=== PATIENT | female | born 1940 | race Two or more races ===

== ENCOUNTER 2018-11-28 16:03 | Inpatient (IN) | payer OTHER ==
[~2018-11-28] VITALS: Ht 157.5 cm; Wt 50.8 kg
[~2018-11-28 16:03] MED LIST: CAR125T PO; CHOL20003; DIPH25CA6; GABA300C10 PO; OMEP20CA74 PO; ONDA4TAB5 PO; POTA10TA51 PO; SERT-160; SIMV-13
[2018-11-28 17:30] LABS: Basophils # (auto) 0 uL; Eosinophils # (auto) 0 uL; Hemoglobin 12.6 g/dL (12.2-16.2); Monocytes # (auto) 0.3 uL; Red Cell Distribution Width 16.7 % (11.8-14.3); White Blood Cell 5.5 10^3/uL (4.4-10.8)
[2018-11-28 17:32] LABS: Basophils % (auto) 0.6 % (0.0-2.0); Eosinophils % (auto) 0.2 % (0.0-7.0); Hematocrit 38.7 % (36.0-46.0); Lymphocytes # (auto) 0.8 uL; Lymphocytes % (auto) 15.3 % (10.0-50.0); Mean Corpuscular Hemoglobin 26.1 pg (28.0-32.0); Mean Corpuscular Hgb Conc. 32.5 g/dL (32.0-36.0); Mean Corpuscular Volume 80.3 fL (80.0-100.0); Neutrophils # (auto) 4.2 uL; Neutrophils % (auto) 77.9 % (37.0-80.0); Platelet Count (auto) 144 10^3/uL (140-450); Red Blood Cells 4.82 10^6/uL (4.0-5.20)
[2018-11-28 17:43] LABS: Partial Thromboplastin Time 22.6 sec (23.78-33.04); Prothrombin Time 10.7 sec (9.27-12.13)
[2018-11-28 17:49] LABS: Alanine Aminotransferase 13 U/L (13-56); Albumin 3.6 g/dL (3.4-5.0); Anion Gap 11 (5-15); Aspartate Aminotransferase 22 U/L (15-37); Blood Urea Nitrogen 8 mg/dL (7-18); Calcium 8.5 mg/dL (8.5-10.1); Carbon Dioxide 26 mmol/L (21-32); Chloride 102 mmol/L (98-107); Glucose 112 mg/dL (74-106); Magnesium 1.8 mg/dL (1.6-2.6); Potassium 3.1 mmol/L (3.5-5.1); Sodium 139 mmol/L (136-145)
[2018-11-28 17:55] LABS: Alkaline Phosphatase 130 U/L (45-117); BUN/Creatinine Ratio 6.7; Bilirubin, Total 0.5 mg/dL (0.2-1.0); GFR African American 57 mL/min; GFR Non-African American 47 mL/min; Total Protein 7.8 g/dL (6.4-8.2)
[2018-11-28] MEDS ORDERED: ONDANSETRON HCL 4 MG/2 ML VIAL IV ONE (18:45)
[2018-11-28] MEDS ORDERED: SODIUM CHLORIDE 0.9% 1,000 ML IV ONE (18:45)
[2018-11-28] MEDS ORDERED: PANTOPRAZOLE 40 MG/10 ML VIAL IV ONE (20:30)
[2018-11-28] MEDS ORDERED: PROMETHAZINE HCL 25 MG/ML 1ML IV ONE (20:30)
[2018-11-28] MEDS: POTASSIUM CHL 20MEQ/100ML 100 ML IV SCH ×2 (20:50→23:53)
[2018-11-28] MEDS ORDERED: HYDROcodone-ACET 5/325MG TAB PO PRN (21:30)
[2018-11-28] MEDS ORDERED: ACETAMINOPHEN 500 MG TAB PO PRN (21:30)
[2018-11-28] MEDS ORDERED: ONDANSETRON HCL 4 MG/2 ML VIAL IV PRN (21:30)
[2018-11-28] MEDS ORDERED: MORPHINE SULFATE 10 MG/ML INJ 1ML SDV IV PRN (21:30)
[2018-11-28 22:00] VITALS: BP 138/93
[2018-11-28] MEDS ORDERED: SERTRALINE HCL 50 MG TAB PO SCH (22:00)
[2018-11-28] MEDS: CARVEDILOL 12.5 MG TAB PO SCH (22:00)
[2018-11-28 22:55] VITALS: BP 138/93
--- NOTE | 2018-11-28 22:55 | NUR ---
Telemetry admit from ER ARLENE LOPEZ H admitted to Telemetry unit. Patient oriented to Johana Malone RN primary RN, unit, room, bed, and unit policies regarding patient care and visiting hours. Patient now on continuous telemetry monitoring, tele box # 36 and telemetry reading on arrival to unit is Sinus rhythm. Patient is on room air, weighed by bedscale and encouraged to call if they need something. Bed is in lowest locked position with bed rails up x2 and call light is within reach of the patient. All questions and concerns addressed, patient verbalized understanding.
--- NOTE | 2018-11-29 02:01 | NUR ---
Unable to obtain Reconcile Medications: Patient unable to verify what medications patient takes at home. Patient did not have a list of medications on them and did not bring medications to the hospital. Asked patient if a family member could bring the list of medications to the hospital for hospital records. Patient verbalized understanding and will attempt to obtain medication list. Will make day nurse aware.
[2018-11-29 04:55] VITALS: BP 135/67
--- NOTE | 2018-11-29 06:47 | NUR ---
Closing note: Patient is resting in bed with eyes closed. No S/S of distress noted, breaths are even and unlabored. Bed is in lowest locked position with bed rails up x2 and call light is within reach of the patient. Will endorse care to day shift nurse.
[2018-11-29 06:54] LABS: Basophils # (auto) 0 uL; Eosinophils # (auto) 0.1 uL; Hematocrit 32.9 % (36.0-46.0); Hemoglobin 10.8 g/dL (12.2-16.2); Mean Corpuscular Hemoglobin 26.5 pg (28.0-32.0); Monocytes # (auto) 0.3 uL; Nucleated Red Blood Cells % 0.1 %
[2018-11-29 06:55] LABS: Basophils % (auto) 1.1 % (0.0-2.0); Eosinophils % (auto) 1.7 % (0.0-7.0); Lymphocytes # (auto) 0.8 uL; Lymphocytes % (auto) 21.4 % (10.0-50.0); Mean Corpuscular Hgb Conc. 32.9 g/dL (32.0-36.0); Mean Corpuscular Volume 80.5 fL (80.0-100.0); Monocytes % (auto) 8.1 % (0.0-12.0); Neutrophils # (auto) 2.7 uL; Neutrophils % (auto) 67.7 % (37.0-80.0); Platelet Count (auto) 105 10^3/uL (140-450); Red Blood Cells 4.09 10^6/uL (4.0-5.20)
[2018-11-29 07:07] LABS: BUN/Creatinine Ratio 5.6; Calcium 8.1 mg/dL (8.5-10.1); Potassium 3.7 mmol/L (3.5-5.1)
[2018-11-29] MEDS ORDERED: PANTOPRAZOLE 40 MG TAB PO SCH (07:30)
[2018-11-29] MEDS: CARVEDILOL 12.5 MG TAB PO SCH (08:00)
[2018-11-29 08:23] VITALS: BP 152/71
--- NOTE | 2018-11-29 08:30 | NUR ---
Opening Shift Note Assumed care of patient, awake and alert, oriented x 4 and verbally responsive. Respiratory even and unlabored. No S/S of distress/SOB or pain. Skin is warm and dry to touch. Instructed on POC and to call for assist PRN, will continue to monitor for changes Q1hr and PRN.
[2018-11-29 09:27] VITALS: BP 152/71
[2018-11-29] MEDS ORDERED: CLOPIDOGREL BISULFATE 75 MG TAB PO SCH (10:00)
[2018-11-29 12:36] VITALS: BP 122/66
[2018-11-29 14:06] VITALS: BP 152/71
--- NOTE | 2018-11-29 15:04 | NUR ---
Discharge instructions given as ordered. Encourage to follow up with PMD(Follow up with Tyron Allen : #[id number], [id number], [place] [address]. Follow up with Systems Support Engineer [place] [address] [place] [id number], [place] [address] Instructed to make own appointments) as instructed. All questions and concerns addressed. Patient verbalized understanding. Medication reconciliation form completed and copy given to patient. IV removed with catheter intact, pressure dressing applied. Telemetry unit returned to [facility]. Patient taken to vehicle via wheelchair with all personal belongings, accompanied by staff and family member. No distress noted at time of departure.
== END 2018-11-29 15:10 | disposition home or self-care (01) | DRG 641 ==
LOC: EDBD 16:03 → ER 16:05 → TELE 21:24 → TELE-WESTW 22:55
PROVIDERS: ADMIT Nurse Practitioner Family; ATTEND Nurse Practitioner Family
DX: E87.6 Hypokalemia (principal); I49.1 Atrial premature depolarization; D63.8 Anemia in other chronic diseases classified elsewhere; E11.22 Type 2 diabetes mellitus with diabetic chronic kidney disease; E78.5 Hyperlipidemia, unspecified; I12.9 Hypertensive chronic kidney disease with stage 1 through stage 4 chronic kidney disease, or unspecified chronic kidney disease; K21.9 Gastro-esophageal reflux disease without esophagitis; N18.3 Chronic kidney disease, stage 3 (moderate); Z96.652 Presence of left artificial knee joint; F32.9 Major depressive disorder, single episode, unspecified; R00.2 Palpitations; F41.9 Anxiety disorder, unspecified; Z90.49 Acquired absence of other specified parts of digestive tract; Z82.0 Family history of epilepsy and other diseases of the nervous system; Z82.3 Family history of stroke; Z82.49 Family history of ischemic heart disease and other diseases of the circulatory system; Z87.11 Personal history of peptic ulcer disease; Z83.3 Family history of diabetes mellitus; Z90.710 Acquired absence of both cervix and uterus
CPT/HCPCS: 36415; 71046; 80048; 80053; 83735; 83880; 84484; 85025; 85610; 85730; 93005; 94761; 96361; 96374; 96375; C9113; G0378; J2405; J3480

== ENCOUNTER 2019-02-28 15:38 | Inpatient (IN) | payer OTHER ==
[~2019-02-28] VITALS: Ht 152.4 cm; Wt 57.2 kg
[2019-02-28] MEDS ORDERED: ACCU-CHEK COMFORT CURVE STRIP VI ONE ×2 (16:00→16:15)
[2019-02-28] MEDS ORDERED: DEXTROSE (50%) 50ML SYRG IV ONE ×2 (16:00→16:15)
[2019-02-28 17:26] LABS: Basophils # (auto) 0 uL; Eosinophils # (auto) 0.1 uL; Monocytes # (auto) 0.5 uL; Neutrophils # (auto) 2.9 uL; Platelet Count (auto) 97 10^3/uL (140-450); White Blood Cell 4.4 10^3/uL (4.4-10.8)
[2019-02-28 17:30] LABS: Basophils % (auto) 0.4 % (0.0-2.0); Eosinophils % (auto) 2.1 % (0.0-7.0); Hematocrit 32.5 % (36.0-46.0); Hemoglobin 10.5 g/dL (12.2-16.2); Lymphocytes % (auto) 21.8 % (10.0-50.0); Mean Corpuscular Hgb Conc. 32.3 g/dL (32.0-36.0); Mean Corpuscular Volume 83.3 fL (80.0-100.0); Monocytes % (auto) 10.4 % (0.0-12.0); Neutrophils % (auto) 65.3 % (37.0-80.0)
[2019-02-28 17:43] LABS: Albumin 3.5 g/dL (3.4-5.0); Anion Gap 8 (5-15); Blood Urea Nitrogen 10 mg/dL (7-18); Calcium 8.5 mg/dL (8.5-10.1); Carbon Dioxide 22 mmol/L (21-32); Chloride 110 mmol/L (98-107); Glucose 81 mg/dL (74-106); Magnesium 2.4 mg/dL (1.6-2.6); Potassium 4.1 mmol/L (3.5-5.1); Sodium 140 mmol/L (136-145)
[2019-02-28 17:51] LABS: Alanine Aminotransferase 11 U/L (13-56); Alkaline Phosphatase 130 U/L (45-117); Aspartate Aminotransferase 15 U/L (15-37); BUN/Creatinine Ratio 7.7; Bilirubin, Total 0.2 mg/dL (0.2-1.0); GFR African American 51 mL/min; GFR Non-African American 42 mL/min; Total Protein 7.1 g/dL (6.4-8.2)
[2019-02-28 20:13] LABS: Urine Bacteria NONE SEEN /hpf (None Seen); Urine Blood Negative /uL (Negative); Urine Hyaline Cast FEW /lpf (0 - 2); Urine Specific Gravity 1.014 (1.001-1.035); Urine WBC 29 /hpf (0 - 5)
[2019-02-28] MEDS ORDERED: D5W/SOD CHL 0.45% 1,000 ML IV ONE (20:45)
[2019-02-28] MEDS ORDERED: ONDANSETRON HCL 4 MG/2 ML VIAL IV PRN (21:15)
[2019-02-28] MEDS ORDERED: TEMAZEPAM 15 MG CAP PO PRN (21:15)
[2019-02-28] MEDS ORDERED: ACETAMINOPHEN 325 MG TAB PO PRN (21:15)
[2019-02-28] MEDS ORDERED: DEXTROSE (50%) 50ML SYRG IV PRN (21:15)
[2019-02-28] MEDS ORDERED: cefTRIAXone 1GM/50ML D5W 50 ML IV ONE (21:15)
[2019-02-28] MEDS: D5W/SOD CHLO 0.9% 1,000 ML IV SCH ×2 (21:15→23:55)
[2019-02-28] MEDS ORDERED: ATORVASTATIN 20 MG TAB PO SCH (22:00)
[2019-02-28] MEDS: CARVEDILOL 12.5 MG TAB PO SCH (22:12)
[2019-02-28 22:30] VITALS: BP 156/86
[2019-02-28 22:57] VITALS: BP 156/86
[2019-02-28] MEDS: ACCU-CHEK COMFORT CURVE STRIP VI SCH (23:49)
[2019-02-28] MEDS: InsuLIN REG 1unit/0.01ml Soln (100units/ml) SC SCH (23:50)
[2019-03-01] MEDS: InsuLIN REG 1unit/0.01ml Soln (100units/ml) SC SCH ×3 (04:00→11:43)
[2019-03-01] MEDS: ACCU-CHEK COMFORT CURVE STRIP VI SCH ×3 (04:05→11:42)
[2019-03-01 05:10] LABS: Basophils # (auto) 0 uL; Basophils % (auto) 0.5 % (0.0-2.0); Eosinophils # (auto) 0.1 uL; Eosinophils % (auto) 2.1 % (0.0-7.0); Hematocrit 29.1 % (36.0-46.0); Hemoglobin 9.6 g/dL (12.2-16.2); Lymphocytes # (auto) 1.1 uL; Mean Corpuscular Hemoglobin 27.3 pg (28.0-32.0); Mean Corpuscular Hgb Conc. 32.9 g/dL (32.0-36.0); Mean Corpuscular Volume 82.9 fL (80.0-100.0); Monocytes # (auto) 0.3 uL; Monocytes % (auto) 8.3 % (0.0-12.0); Neutrophils # (auto) 2.5 uL; Neutrophils % (auto) 62.1 % (37.0-80.0); Platelet Count (auto) 78 10^3/uL (140-450); Red Blood Cells 3.51 10^6/uL (4.0-5.20); Red Cell Distribution Width 16.8 % (11.8-14.3)
[2019-03-01 05:16] VITALS: BP 123/59
[2019-03-01 05:28] LABS: BUN/Creatinine Ratio 8.7; Calcium 8.2 mg/dL (8.5-10.1); Potassium 4.2 mmol/L (3.5-5.1)
[2019-03-01] MEDS ORDERED: PANTOPRAZOLE 40 MG TAB PO SCH (07:00)
[2019-03-01 09:00] VITALS: BP 129/58
[2019-03-01] MEDS: CARVEDILOL 12.5 MG TAB PO SCH (09:10)
[2019-03-01] MEDS ORDERED: GABAPENTIN 300 MG CAP PO SCH (10:00)
[2019-03-01] MEDS ORDERED: SERTRALINE HCL 50 MG TAB PO SCH (10:00)
[2019-03-01] MEDS ORDERED: LEVOFLOXACIN 500 MG TAB PO ONE (11:15)
[2019-03-01] MEDS ORDERED: LEVO500T21 PO (11:43)
[2019-03-01 12:41] VITALS: BP 137/68
[2019-03-01] MEDS ORDERED: cefTRIAXone 1GM/50ML D5W 50 ML IV SCH (21:00)
[2019-03-02] MEDS ORDERED: LEVOFLOXACIN 250 MG TAB PO SCH (10:00)
== END 2019-03-01 14:15 | disposition home or self-care (01) | DRG 638 ==
LOC: EDBD 15:38 → ER 15:43 → OVERFLOW 21:24 → CENTRAL 22:19
PROVIDERS: ADMIT Nurse Practitioner; ATTEND Internal Medicine
DX: E11.649 Type 2 diabetes mellitus with hypoglycemia without coma (principal); N39.0 Urinary tract infection, site not specified; E11.22 Type 2 diabetes mellitus with diabetic chronic kidney disease; I12.9 Hypertensive chronic kidney disease with stage 1 through stage 4 chronic kidney disease, or unspecified chronic kidney disease; D69.6 Thrombocytopenia, unspecified; D63.8 Anemia in other chronic diseases classified elsewhere; D50.9 Iron deficiency anemia, unspecified; F41.9 Anxiety disorder, unspecified; F32.9 Major depressive disorder, single episode, unspecified; R55 Syncope and collapse; E78.5 Hyperlipidemia, unspecified; K21.9 Gastro-esophageal reflux disease without esophagitis; N18.3 Chronic kidney disease, stage 3 (moderate); Z82.0 Family history of epilepsy and other diseases of the nervous system; Z82.3 Family history of stroke; Z82.49 Family history of ischemic heart disease and other diseases of the circulatory system; Z90.710 Acquired absence of both cervix and uterus; Z87.11 Personal history of peptic ulcer disease; Z90.49 Acquired absence of other specified parts of digestive tract
CPT/HCPCS: 36415; 70450; 71045; 80048; 80053; 81001; 82962; 83735; 84484; 85025; 93005; 94761; 96365; 96367; 96375; G0378; J0696; J7042

== ENCOUNTER 2019-10-16 16:29 | Emergency (ER) | payer OTHER ==
[~2019-10-16] VITALS: Ht 157.5 cm; Wt 57.6 kg
[~2019-10-16 16:29] MED LIST changes: +CLOP75TA41; -DIPH25CA6; +HCTZ25T; +LEVO500T21 PO; -OMEP20CA74 PO; +ONDA-144 PO; -ONDA4TAB5 PO; +PANT40T; +TRAZ50TA2
[2019-10-16] MEDS ORDERED: HYDROcodone-ACET 5/325MG TAB PO ONE (18:00)
[2019-10-16 18:06] VITALS: BP 152/69
== END 2019-10-16 18:58 | disposition home or self-care (01) ==
LOC: ER 16:29 → EDBD 16:29 → ER 18:58
DX: S52.592A Other fractures of lower end of left radius, initial encounter for closed fracture (principal); S52.612A Displaced fracture of left ulna styloid process, initial encounter for closed fracture; S00.83XA Contusion of other part of head, initial encounter; I12.9 Hypertensive chronic kidney disease with stage 1 through stage 4 chronic kidney disease, or unspecified chronic kidney disease; E11.22 Type 2 diabetes mellitus with diabetic chronic kidney disease; N18.9 Chronic kidney disease, unspecified; K21.9 Gastro-esophageal reflux disease without esophagitis; E78.00 Pure hypercholesterolemia, unspecified; Z90.49 Acquired absence of other specified parts of digestive tract; Z90.710 Acquired absence of both cervix and uterus; Z90.89 Acquired absence of other organs; Z79.2 Long term (current) use of antibiotics; Z79.899 Other long term (current) drug therapy; W19.XXXA Unspecified fall, initial encounter; Y93.89 Activity, other specified; Y92.89 Other specified places as the place of occurrence of the external cause; Y99.8 Other external cause status
CPT/HCPCS: 29125; 70450; 73100

== ENCOUNTER 2021-08-22 17:42 | Inpatient (IN) | payer OTHER ==
[~2021-08-22 17:42] MED LIST changes: -CLOP75TA41; +CLOP75TA70; -HCTZ25T; +HYDR25TA5; -LEVO500T21 PO; +LEVO500T31 PO
[2021-08-22 18:53] LABS: Basophils # (auto) 0 10 ^3/uL (0-0.2); Basophils % (auto) 0.4 % (0.0-2.0); Eosinophils # (auto) 0.1 10 ^3/uL (0-0.8); Eosinophils % (auto) 2.5 % (0.0-7.0); Lymphocytes # (auto) 0.6 10 ^3/uL (0.4-5.4); Lymphocytes % (auto) 9.9 % (10.0-50.0); Mean Corpuscular Hemoglobin 27.2 pg (28.0-32.0); Mean Corpuscular Hgb Conc. 32.4 g/dL (32.0-36.0); Monocytes # (auto) 0.4 10 ^3/uL (0-1.3); Monocytes % (auto) 6.3 % (0.0-12.0); Neutrophils # (auto) 4.6 10 ^3/uL (1.6-8.6); Neutrophils % (auto) 80.9 % (37.0-80.0); Red Cell Distribution Width 19.1 % (11.8-14.3); White Blood Cell 5.6 10^3/uL (4.4-10.8)
[2021-08-22 18:56] LABS: Albumin 3.4 g/dL (3.4-5.0); Anion Gap 1 (5-15); Blood Urea Nitrogen 12 mg/dL (7-18); Calcium 8.7 mg/dL (8.5-10.1); Carbon Dioxide 21 mmol/L (21-32); Chloride 119 mmol/L (98-107); Glucose 128 mg/dL (74-106); Magnesium 2.2 mg/dL (1.6-2.6); Potassium 4.7 mmol/L (3.5-5.1); Sodium 141 mmol/L (136-145)
[2021-08-22 19:03] LABS: Alanine Aminotransferase 15 U/L (13-56); Alkaline Phosphatase 126 U/L (45-117); Aspartate Aminotransferase 13 U/L (15-37); BUN/Creatinine Ratio 7.7; Bilirubin, Total 0.2 mg/dL (0.2-1.0); GFR African American 41 mL/min; GFR Non-African American 34 mL/min; Total Protein 7.3 g/dL (6.4-8.2)
[2021-08-22] MEDS ORDERED: NITROGLYCERIN 0.4 MG SL TAB SL PRN (22:30)
[2021-08-22] MEDS ORDERED: ONDANSETRON HCL 4 MG/2 ML VIAL IV PRN (22:30)
[2021-08-22] MEDS ORDERED: MORPHINE SULFATE INJECTION 2 MG/ML SYRG IV PRN (22:30)
[2021-08-22] MEDS ORDERED: CARVEDILOL 12.5 MG TAB PO ONE (22:30)
[2021-08-22 22:53] LABS: Urine Bacteria FEW /hpf (None Seen); Urine Blood 1+ /uL (Negative); Urine Mucus FEW (None Seen); Urine Specific Gravity 1.014 (1.001-1.035); Urine WBC 157 /hpf (0 - 5)
[2021-08-22 23:06] LABS: Alcohol, Urine < 3.0 mg/dL (0-10); Amphetamine Screen, Urine NEGATIVE (NEGATIVE); Barbiturate Scree,Urine NEGATIVE (NEGATIVE); Benzodiazephine Screen, Urine NEGATIVE (NEGATIVE); Cannabinoid Screen, Urine NEGATIVE (NEGATIVE); Cocaine Screen, Urine NEGATIVE (NEGATIVE); Opiate Scree,Urine NEGATIVE (NEGATIVE); Phencyclidine Screen, Urine NEGATIVE (NEGATIVE)
[2021-08-22 23:50] VITALS: BP 167/81
[2021-08-23] VITALS (7 sets, daily range): BP systolic 134–158; BP diastolic 57–76
[2021-08-23] MEDS: ACETAMINOPHEN 325 MG TAB PO PRN ×3 (04:55→16:23)
[2021-08-23 05:29] LABS: Basophils # (auto) 0 10 ^3/uL (0-0.2); Basophils % (auto) 0.8 % (0.0-2.0); Eosinophils # (auto) 0.1 10 ^3/uL (0-0.8); Eosinophils % (auto) 1.3 % (0.0-7.0); Hematocrit 34.8 % (36.0-46.0); Hemoglobin 11.3 g/dL (12.2-16.2); Lymphocytes % (auto) 23.3 % (10.0-50.0); Mean Corpuscular Hemoglobin 27.1 pg (28.0-32.0); Mean Corpuscular Hgb Conc. 32.4 g/dL (32.0-36.0); Mean Corpuscular Volume 83.8 fL (80.0-100.0); Monocytes # (auto) 0.4 10 ^3/uL (0-1.3); Monocytes % (auto) 10.4 % (0.0-12.0); Neutrophils # (auto) 2.7 10 ^3/uL (1.6-8.6); Neutrophils % (auto) 64.2 % (37.0-80.0); Nucleated Red Blood Cells % 0.2 %; Red Blood Cells 4.16 10^6/uL (4.0-5.20); Red Cell Distribution Width 18.7 % (11.8-14.3); White Blood Cell 4.3 10^3/uL (4.4-10.8)
[2021-08-23 06:01] LABS: Potassium 3.6 mmol/L (3.5-5.1)
[2021-08-23 06:08] LABS: Calcium 8.5 mg/dL (8.5-10.1)
[2021-08-23] MEDS: cefTRIAXone 1GM/50ML D5W 50 ML IV SCH (09:34)
[2021-08-23] MEDS: ENOXAPARIN SOD 30 MG/0.3 ML SYRINGE SC SCH (09:34)
[2021-08-23] MEDS: HCTZ 25 MG TAB PO SCH (09:35)
[2021-08-23] MEDS: CLOPIDOGREL BISULFATE 75 MG TAB PO SCH (09:35)
[2021-08-23] MEDS: CARVEDILOL 12.5 MG TAB PO SCH ×2 (09:35→22:22)
[2021-08-23] MEDS: PANTOPRAZOLE 40 MG TAB PO SCH (09:35)
[2021-08-23] MEDS: ASPirin 81 mg TAB PO SCH (09:35)
[2021-08-23] MEDS ORDERED: ATORVASTATIN 20 MG TAB PO SCH (22:00)
[2021-08-23] MEDS ORDERED: GABAPENTIN 300 MG CAP PO SCH (22:00)
[2021-08-24 05:00] VITALS: BP 140/63
[2021-08-24 09:00] VITALS: BP 155/69
[2021-08-24] MEDS: cefTRIAXone 1GM/50ML D5W 50 ML IV SCH (09:37)
[2021-08-24] MEDS: ASPirin 81 mg TAB PO SCH (09:38)
[2021-08-24] MEDS: CARVEDILOL 12.5 MG TAB PO SCH ×2 (09:38→13:15)
[2021-08-24] MEDS: ENOXAPARIN SOD 30 MG/0.3 ML SYRINGE SC SCH (09:39)
[2021-08-24] MEDS: CLOPIDOGREL BISULFATE 75 MG TAB PO SCH (09:39)
[2021-08-24] MEDS: HCTZ 25 MG TAB PO SCH (09:39)
[2021-08-24] MEDS: PANTOPRAZOLE 40 MG TAB PO SCH (09:39)
[2021-08-24] MEDS ORDERED: SERT100T PO (12:55)
[2021-08-24] MEDS ORDERED: POTA-220 PO (12:55)
[2021-08-24] MEDS ORDERED: GABA300C10 PO (13:05)
[2021-08-24] MEDS ORDERED: ATOR40TA52 PO (13:05)
[2021-08-24] MEDS ORDERED: PANC12002 PO (13:05)
[2021-08-24] MEDS ORDERED: FER325T PO (13:05)
[2021-08-24] MEDS ORDERED: DOCU100T15 PO (13:05)
[2021-08-24] MEDS ORDERED: HYDR1TAB97 PO (13:05)
[2021-08-24] MEDS ORDERED: CARV12.544 PO (13:05)
[2021-08-24] MEDS ORDERED: PANT40T PO (13:05)
[2021-08-24] MEDS ORDERED: CIPR500T4 PO (13:09)
[2021-08-24 13:50] VITALS: BP 145/78
[2021-08-24] MEDS ORDERED: TRIA50TA2 PO (14:22)
[2021-08-24 14:36] VITALS: BP 145/78
== END 2021-08-24 14:30 | disposition home health service (06) | DRG 605 ==
LOC: ER 17:42 → EDBD 17:42 → TELE-WESTW 22:24
PROVIDERS: ADMIT Nurse Practitioner; ATTEND Hospitalist
DX: S40.022A Contusion of left upper arm, initial encounter (principal); N17.9 Acute kidney failure, unspecified; N39.0 Urinary tract infection, site not specified; I13.0 Hypertensive heart and chronic kidney disease with heart failure and stage 1 through stage 4 chronic kidney disease, or unspecified chronic kidney disease; E11.649 Type 2 diabetes mellitus with hypoglycemia without coma; N18.9 Chronic kidney disease, unspecified; E11.22 Type 2 diabetes mellitus with diabetic chronic kidney disease; E78.5 Hyperlipidemia, unspecified; I50.9 Heart failure, unspecified; F32.9 Major depressive disorder, single episode, unspecified; F41.9 Anxiety disorder, unspecified; K21.9 Gastro-esophageal reflux disease without esophagitis; R55 Syncope and collapse; Z20.822 Contact with and (suspected) exposure to COVID-19; Z82.0 Family history of epilepsy and other diseases of the nervous system; Z82.3 Family history of stroke; Z82.49 Family history of ischemic heart disease and other diseases of the circulatory system; Z83.3 Family history of diabetes mellitus; Z86.73 Personal history of transient ischemic attack (TIA), and cerebral infarction without residual deficits; Z87.11 Personal history of peptic ulcer disease; Z90.710 Acquired absence of both cervix and uterus; Z98.1 Arthrodesis status; Y93.89 Activity, other specified; Y99.8 Other external cause status; Y92.410 Unspecified street and highway as the place of occurrence of the external cause; V49.9XXA Car occupant (driver) (passenger) injured in unspecified traffic accident, initial encounter
CPT/HCPCS: 36415; 70450; 70551; 71045; 72125; 80048; 80053; 80307; 80320; 81001; 82962; 83735; 84484; 85025; 87426; 93005; 93306; G0378; J0696; J2405

== ENCOUNTER 2022-02-10 04:35 | Emergency (ER) | payer OTHER ==
[~2022-02-10] VITALS: Ht 157.5 cm; Wt 65.3 kg
[~2022-02-10 04:35] MED LIST changes: +ATOR40TA52 PO; -CAR125T PO; +CARV12.544 PO; -CHOL20003; +CIPR500T4 PO; -CLOP75TA70; +DOCU100T15 PO; +FER325T PO; +HYDR1TAB97 PO; -HYDR25TA5; -LEVO500T31 PO; -ONDA-144 PO; +PANC12002 PO; -PANT40T; +PANT40T PO; +POTA-220 PO; -POTA10TA51 PO; -SERT-160; +SERT100T PO; -SIMV-13; -TRAZ50TA2; +TRIA50TA2 PO
[2022-02-10 04:39] VITALS: BP 184/59
[2022-02-10] MEDS ORDERED: HYDROcodone-ACET 5/325MG TAB PO ONE (05:15)
== END 2022-02-10 07:58 | disposition left against medical advice (07) ==
LOC: ER 04:35
DX: M25.561 Pain in right knee (principal); M25.551 Pain in right hip; Z53.21 Procedure and treatment not carried out due to patient leaving prior to being seen by health care provider; W01.0XXA Fall on same level from slipping, tripping and stumbling without subsequent striking against object, initial encounter; Y93.89 Activity, other specified; Y92.89 Other specified places as the place of occurrence of the external cause; Y99.8 Other external cause status
CPT/HCPCS: 72170; 73562

== ENCOUNTER 2023-04-19 03:43 | Inpatient (IN) | payer OTHER ==
[~2023-04-19] VITALS: Ht 157.5 cm; Wt 70.0 kg
[~2023-04-19 03:43] MED LIST changes: +GABA-1250 PO; -GABA300C10 PO; -TRIA50TA2 PO; +TRIA75TA11 PO
[2023-04-19] MEDS ORDERED: ONDANSETRON HCL 4 MG/2 ML VIAL ONE (04:23)
[2023-04-19] MEDS ORDERED: ONDANSETRON HCL 4 MG/2 ML VIAL IV ONE (04:30)
[2023-04-19 04:39] LABS: Basophils # (auto) 0.1 10 ^3/uL (0-0.2); Basophils % (auto) 0.4 % (0.0-2.0); Eosinophils # (auto) 0 10 ^3/uL (0-0.8); Eosinophils % (auto) 0.3 % (0.0-7.0); Hematocrit 30.2 % (36.0-46.0); Hemoglobin 9.8 g/dL (12.2-16.2); Lymphocytes # (auto) 1.9 10 ^3/uL (0.4-5.4); Lymphocytes % (auto) 16.4 % (10.0-50.0); Mean Corpuscular Hemoglobin 29.1 pg (28.0-32.0); Mean Corpuscular Hgb Conc. 32.6 g/dL (32.0-36.0); Mean Corpuscular Volume 89.3 fL (80.0-100.0); Monocytes # (auto) 0.6 10 ^3/uL (0-1.3); Monocytes % (auto) 5.4 % (0.0-12.0); Neutrophils # (auto) 9.1 10 ^3/uL (1.6-8.6); Neutrophils % (auto) 77.5 % (37.0-80.0); Nucleated Red Blood Cells % 0.2 %; Red Blood Cells 3.38 10^6/uL (4.0-5.20); Red Cell Distribution Width 15.3 % (11.8-14.3); White Blood Cell 11.7 10^3/uL (4.4-10.8)
[2023-04-19] MEDS ORDERED: OCTREOTIDE ACETATE 100 MCG/ML VL ONE (04:42)
[2023-04-19] MEDS ORDERED: PANTOPRAZOLE 40 MG/10 ML VIAL INJ IV ONE ×2 (04:42)
[2023-04-19] MEDS ORDERED: OCTREOTIDE ACETATE 500 MCG/ML VL ONE (04:43)
[2023-04-19] MEDS ORDERED: PANTOPRAZOLE 80 MG in SODIUM CHL 0.9% 100 ML IV ONE (04:45)
[2023-04-19] MEDS ORDERED: OCTREOTIDE ACETATE 100 MCG in SODIUM CHL 0.9% 50 ML IV ONE (04:45)
[2023-04-19] MEDS ORDERED: PANTOPRAZOLE 40mg/50ML NS AE 50 ML IV ONE (04:45)
[2023-04-19] MEDS ORDERED: OCTREOTIDE ACETATE 500 MCG in SODIUM CHL 0.9% 99 ML IV SCH ×4 (04:45)
[2023-04-19 04:56] LABS: Albumin 2.6 g/dL (3.4-5.0); BUN/Creatinine Ratio 21.8 (10.0-20.0); Calcium 8.5 mg/dL (8.5-10.1); Potassium 5.2 mmol/L (3.5-5.1)
[2023-04-19 04:59] LABS: Bilirubin, Total 0.3 mg/dL (0.2-1.0); Total Protein 6.1 g/dL (6.4-8.2)
[2023-04-19] MEDS ORDERED: IOHEXOL 300 MG/ML 100ML BOTTLE IJ ONE (05:52)
[2023-04-19] MEDS ORDERED: InsuLIN REG 1unit/0.01ml Soln (100units/ml) IV ONE (06:15)
[2023-04-19] MEDS ORDERED: cefTRIAXone 1GM/50ML D5W 50 ML IV ONE (06:15)
[2023-04-19] MEDS ORDERED: DEXTROSE (50%) 50ML SYRG IV ONE (06:15)
[2023-04-19] MEDS ORDERED: DEXTROSE 10% 250 ML Bag IV ONE (06:30)
[2023-04-19 09:06] LABS: Basophils # (auto) 0 10 ^3/uL (0-0.2); Basophils % (auto) 0.5 % (0.0-2.0); Eosinophils # (auto) 0 10 ^3/uL (0-0.8); Eosinophils % (auto) 0.1 % (0.0-7.0); Hematocrit 37.4 % (36.0-46.0); Hemoglobin 12.4 g/dL (12.2-16.2); Lymphocytes # (auto) 0.6 10 ^3/uL (0.4-5.4); Lymphocytes % (auto) 8.6 % (10.0-50.0); Mean Corpuscular Hemoglobin 28.9 pg (28.0-32.0); Mean Corpuscular Hgb Conc. 33.2 g/dL (32.0-36.0); Mean Corpuscular Volume 86.9 fL (80.0-100.0); Monocytes # (auto) 0.3 10 ^3/uL (0-1.3); Monocytes % (auto) 4.2 % (0.0-12.0); Neutrophils # (auto) 6.2 10 ^3/uL (1.6-8.6); Neutrophils % (auto) 86.6 % (37.0-80.0); White Blood Cell 7.1 10^3/uL (4.4-10.8)
[2023-04-19 09:27] LABS: INR 1.13 (0.9-1.15); Partial Thromboplastin Time 22.2 sec (24.6-33.4)
[2023-04-19 09:32] LABS: Calcium 7.8 mg/dL (8.5-10.1); Potassium 3.7 mmol/L (3.5-5.1)
[2023-04-19] MEDS ORDERED: DEXTROSE (50%) 50ML SYRG IV PRN (11:15)
[2023-04-19] MEDS ORDERED: ACETAMINOPHEN 325 MG TAB PO PRN (12:45)
[2023-04-19] MEDS ORDERED: HYDROcodone-ACET 5/325MG TAB PO PRN (12:45)
[2023-04-19] MEDS ORDERED: MORPHINE SULFATE INJ 2 MG/ml SYRG IV PRN (12:45)
[2023-04-19] MEDS ORDERED: NITROGLYCERIN 0.4 MG SL TAB SL PRN (12:45)
[2023-04-19] MEDS: ACCU-CHEK COMFORT CURVE STRIP VI SCH ×3 (12:48→23:24)
[2023-04-19] MEDS: InsuLIN REG 1unit/0.01ml Soln (100units/ml) SC SCH ×3 (12:48→23:24)
[2023-04-19] MEDS ORDERED: GOLYTELY 4L KIT PO ONE (13:00)
[2023-04-19] MEDS: FERROUS SULFATE 325mg EC TAB PO SCH ×2 (14:27→21:21)
[2023-04-19] MEDS: PANCREATIC ENZYMES 4200 UNIT CAP PO SCH ×2 (15:15→21:27)
[2023-04-19 17:44] VITALS: BP 162/68
[2023-04-19] MEDS: PANTOPRAZOLE 40 MG TAB PO SCH (21:20)
[2023-04-19] MEDS: ATORVASTATIN 20 MG TAB PO SCH (21:20)
[2023-04-19] MEDS: CARVEDILOL 12.5 MG TAB PO SCH (21:26)
[2023-04-19 22:00] VITALS: BP 153/64
[2023-04-20 05:00] VITALS: BP 127/61
[2023-04-20 05:04] LABS: Basophils # (auto) 0 10 ^3/uL (0-0.2); Basophils % (auto) 0.4 % (0.0-2.0); Eosinophils # (auto) 0 10 ^3/uL (0-0.8); Eosinophils % (auto) 0.5 % (0.0-7.0); Hematocrit 32.1 % (36.0-46.0); Lymphocytes # (auto) 0.8 10 ^3/uL (0.4-5.4); Mean Corpuscular Hemoglobin 29.1 pg (28.0-32.0); Mean Corpuscular Hgb Conc. 34.4 g/dL (32.0-36.0); Mean Corpuscular Volume 84.6 fL (80.0-100.0); Monocytes # (auto) 0.5 10 ^3/uL (0-1.3); Monocytes % (auto) 8.5 % (0.0-12.0); Neutrophils # (auto) 4.1 10 ^3/uL (1.6-8.6); Neutrophils % (auto) 75.6 % (37.0-80.0); Red Blood Cells 3.79 10^6/uL (4.0-5.20); Red Cell Distribution Width 15.4 % (11.8-14.3); White Blood Cell 5.4 10^3/uL (4.4-10.8)
[2023-04-20] MEDS: PANCREATIC ENZYMES 4200 UNIT CAP PO SCH ×3 (05:04→21:43)
[2023-04-20] MEDS: InsuLIN REG 1unit/0.01ml Soln (100units/ml) SC SCH ×3 (05:04→17:36)
[2023-04-20] MEDS: FERROUS SULFATE 325mg EC TAB PO SCH ×3 (05:04→21:36)
[2023-04-20] MEDS: ACCU-CHEK COMFORT CURVE STRIP VI SCH ×3 (05:05→17:36)
[2023-04-20 05:20] LABS: Calcium 7.8 mg/dL (8.5-10.1); Potassium 4.5 mmol/L (3.5-5.1)
[2023-04-20 05:24] LABS: BUN/Creatinine Ratio 24.8 (10.0-20.0)
[2023-04-20 09:00] VITALS: BP 146/48
[2023-04-20] MEDS: PANTOPRAZOLE 40 MG TAB PO SCH ×2 (11:04→21:37)
[2023-04-20] MEDS: SERTRALINE HCL 50 MG TAB PO SCH (11:04)
[2023-04-20] MEDS: CARVEDILOL 12.5 MG TAB PO SCH ×2 (11:05→21:37)
[2023-04-20 13:00] VITALS: BP 139/76
[2023-04-20] MEDS ORDERED: fentaNYL CITRATE 100 MCG/2 ML VL ONE (14:11)
[2023-04-20] MEDS ORDERED: MIDAZOLAM HCL 2MG/2ML 2ml VIAL (1mg/ml) ONE (14:11)
[2023-04-20] MEDS ORDERED: FLUMAZENIL 0.1 MG/ML INJ 10ML MDV IV ONE (14:12)
[2023-04-20] MEDS ORDERED: NALOXONE HCL 0.4 MG/ML VIAL ONE (14:12)
[2023-04-20] MEDS ORDERED: fentaNYL CITRATE 100 MCG/2 ML VL IV ONE ×2 (14:27→14:28)
[2023-04-20] MEDS ORDERED: MIDAZOLAM HCL 2MG/2ML 2ml VIAL (1mg/ml) IV ONE ×2 (14:27)
[2023-04-20 17:00] VITALS: BP 137/64
[2023-04-20] MEDS: ATORVASTATIN 20 MG TAB PO SCH (21:36)
[2023-04-20 22:00] VITALS: BP 133/49
[2023-04-21] VITALS (40 sets, daily range): BP systolic 99–157; BP diastolic 27–126
[2023-04-21] MEDS: PANCREATIC ENZYMES 4200 UNIT CAP PO SCH ×3 (05:51→22:00)
[2023-04-21] MEDS: ACCU-CHEK COMFORT CURVE STRIP VI SCH ×5 (05:51→23:49)
[2023-04-21] MEDS: FERROUS SULFATE 325mg EC TAB PO SCH ×3 (05:51→22:00)
[2023-04-21] MEDS: InsuLIN REG 1unit/0.01ml Soln (100units/ml) SC SCH ×5 (05:51→23:49)
[2023-04-21 06:46] LABS: BUN/Creatinine Ratio 23.5 (10.0-20.0); Calcium 8.3 mg/dL (8.5-10.1); Potassium 4.3 mmol/L (3.5-5.1)
[2023-04-21 06:49] LABS: Basophils # (auto) 0 10 ^3/uL (0-0.2); Basophils % (auto) 0.4 % (0.0-2.0); Eosinophils # (auto) 0 10 ^3/uL (0-0.8); Eosinophils % (auto) 0.5 % (0.0-7.0); Hematocrit 27.5 % (36.0-46.0); Hemoglobin 9.4 g/dL (12.2-16.2); Lymphocytes # (auto) 0.9 10 ^3/uL (0.4-5.4); Lymphocytes % (auto) 16.7 % (10.0-50.0); Mean Corpuscular Hemoglobin 29.5 pg (28.0-32.0); Mean Corpuscular Hgb Conc. 34.3 g/dL (32.0-36.0); Mean Corpuscular Volume 86.1 fL (80.0-100.0); Monocytes # (auto) 0.4 10 ^3/uL (0-1.3); Monocytes % (auto) 7.5 % (0.0-12.0); Neutrophils # (auto) 3.9 10 ^3/uL (1.6-8.6); Neutrophils % (auto) 74.9 % (37.0-80.0); Nucleated Red Blood Cells % 0.1 %; Red Blood Cells 3.19 10^6/uL (4.0-5.20); Red Cell Distribution Width 15.2 % (11.8-14.3); White Blood Cell 5.2 10^3/uL (4.4-10.8)
[2023-04-21] MEDS: PANTOPRAZOLE 40 MG TAB PO SCH ×2 (09:09→22:00)
[2023-04-21] MEDS: SERTRALINE HCL 50 MG TAB PO SCH (09:10)
[2023-04-21] MEDS: CARVEDILOL 12.5 MG TAB PO SCH ×2 (10:00→22:00)
[2023-04-21] MEDS ORDERED: LIDOCAINE 1% (LOCAL ANESTH.) PF 5ml SDV ID ONE (11:30)
[2023-04-21 13:01] LABS: Basophils # (auto) 0.1 10 ^3/uL (0-0.2); Basophils % (auto) 0.8 % (0.0-2.0); Eosinophils # (auto) 0 10 ^3/uL (0-0.8); Eosinophils % (auto) 0.1 % (0.0-7.0); Hematocrit 24.8 % (36.0-46.0); Hemoglobin 8.5 g/dL (12.2-16.2); Lymphocytes # (auto) 0.9 10 ^3/uL (0.4-5.4); Lymphocytes % (auto) 10.7 % (10.0-50.0); Mean Corpuscular Hemoglobin 29.5 pg (28.0-32.0); Mean Corpuscular Hgb Conc. 34.2 g/dL (32.0-36.0); Mean Corpuscular Volume 86.4 fL (80.0-100.0); Monocytes # (auto) 0.5 10 ^3/uL (0-1.3); Monocytes % (auto) 5.3 % (0.0-12.0); Neutrophils # (auto) 7.2 10 ^3/uL (1.6-8.6); Neutrophils % (auto) 83.1 % (37.0-80.0); Red Blood Cells 2.87 10^6/uL (4.0-5.20); Red Cell Distribution Width 15.4 % (11.8-14.3); White Blood Cell 8.6 10^3/uL (4.4-10.8)
[2023-04-21] MEDS ORDERED: MIDAZOLAM HCL 2MG/2ML 2ml VIAL (1mg/ml) ONE (13:23)
[2023-04-21] MEDS ORDERED: diphenhdrAMINE HCL 50 MG/1 ML VL ONE (13:23)
[2023-04-21] MEDS ORDERED: fentaNYL CITRATE 100 MCG/2 ML VL ONE (13:24)
[2023-04-21] MEDS ORDERED: NALOXONE HCL 0.4 MG/ML VIAL ONE (13:32)
[2023-04-21] MEDS ORDERED: FLUMAZENIL 0.1 MG/ML INJ 10ML MDV IV ONE (13:32)
[2023-04-21] MEDS ORDERED: EPINEPHrine HCL 1 MG/10 ML SYRG ONE (13:46)
[2023-04-21] MEDS ORDERED: SODIUM CHLORIDE 0.9% 2,000 ML IV ONE (14:00)
[2023-04-21] MEDS ORDERED: SODIUM CHLORIDE 0.9% 1,000 ML IV SCH (14:30)
[2023-04-21] MEDS: SODIUM CHLORIDE 0.9% 1,000 ML IV SCH (15:18)
[2023-04-21] MEDS: PANTOPRAZOLE 40mg/50ML NS AE 50 ML IV SCH ×2 (15:22→20:30)
[2023-04-21] MEDS: ATORVASTATIN 20 MG TAB PO SCH (22:00)
[2023-04-21] MEDS: SODIUM CHLOR 0.9% PF (SALINE LOCK) 10ML VIAL/SYR IV SCH (22:01)
[2023-04-21 22:11] LABS: Basophils # (auto) 0 10 ^3/uL (0-0.2); Basophils % (auto) 0.3 % (0.0-2.0); Eosinophils # (auto) 0 10 ^3/uL (0-0.8); Eosinophils % (auto) 0.1 % (0.0-7.0); Hematocrit 21.1 % (36.0-46.0); Hemoglobin 7.2 g/dL (12.2-16.2); Lymphocytes # (auto) 1.1 10 ^3/uL (0.4-5.4); Mean Corpuscular Hemoglobin 29.4 pg (28.0-32.0); Mean Corpuscular Hgb Conc. 33.9 g/dL (32.0-36.0); Mean Corpuscular Volume 86.5 fL (80.0-100.0); Monocytes # (auto) 0.8 10 ^3/uL (0-1.3); Monocytes % (auto) 8.7 % (0.0-12.0); Neutrophils # (auto) 6.8 10 ^3/uL (1.6-8.6); Neutrophils % (auto) 77.9 % (37.0-80.0); Nucleated Red Blood Cells % 0.1 %; Red Blood Cells 2.44 10^6/uL (4.0-5.20); Red Cell Distribution Width 15.2 % (11.8-14.3); White Blood Cell 8.8 10^3/uL (4.4-10.8)
[2023-04-22] VITALS (30 sets, daily range): BP systolic 128–165; BP diastolic 29–71
[2023-04-22] MEDS: PANTOPRAZOLE 40mg/50ML NS AE 50 ML IV SCH ×5 (00:04→20:57)
[2023-04-22] MEDS: SODIUM CHLORIDE 0.9% 1,000 ML IV SCH ×2 (04:16→16:39)
[2023-04-22 04:29] LABS: Basophils # (auto) 0 10 ^3/uL (0-0.2); Eosinophils # (auto) 0 10 ^3/uL (0-0.8); Nucleated Red Blood Cells % 0.1 %; Red Blood Cells 2.18 10^6/uL (4.0-5.20); White Blood Cell 6.1 10^3/uL (4.4-10.8)
[2023-04-22 04:39] LABS: Basophils % (auto) 0.3 % (0.0-2.0); Eosinophils % (auto) 0.1 % (0.0-7.0); Hematocrit 18.8 % (36.0-46.0); Lymphocytes # (auto) 0.9 10 ^3/uL (0.4-5.4); Lymphocytes % (auto) 14.3 % (10.0-50.0); Mean Corpuscular Hemoglobin 30.9 pg (28.0-32.0); Mean Corpuscular Hgb Conc. 35.8 g/dL (32.0-36.0); Mean Corpuscular Volume 86.3 fL (80.0-100.0); Monocytes # (auto) 0.6 10 ^3/uL (0-1.3); Monocytes % (auto) 9.1 % (0.0-12.0); Neutrophils # (auto) 4.6 10 ^3/uL (1.6-8.6); Neutrophils % (auto) 76.2 % (37.0-80.0); Red Cell Distribution Width 15.3 % (11.8-14.3)
[2023-04-22 04:44] LABS: Hemoglobin 6.7 g/dL (12.2-16.2)
[2023-04-22 04:57] LABS: BUN/Creatinine Ratio 29.9 (10.0-20.0); Calcium 7.5 mg/dL (8.5-10.1); Potassium 3.7 mmol/L (3.5-5.1)
[2023-04-22] MEDS: InsuLIN REG 1unit/0.01ml Soln (100units/ml) SC SCH ×3 (05:37→18:00)
[2023-04-22] MEDS: PANCREATIC ENZYMES 4200 UNIT CAP PO SCH ×3 (05:37→22:00)
[2023-04-22] MEDS: ACCU-CHEK COMFORT CURVE STRIP VI SCH ×3 (05:37→18:14)
[2023-04-22] MEDS: FERROUS SULFATE 325mg EC TAB PO SCH ×3 (05:37→22:00)
[2023-04-22] MEDS: PANTOPRAZOLE 40 MG TAB PO SCH (10:00)
[2023-04-22] MEDS: CARVEDILOL 12.5 MG TAB PO SCH ×2 (10:04→22:00)
[2023-04-22] MEDS: SODIUM CHLOR 0.9% PF (SALINE LOCK) 10ML VIAL/SYR IV SCH (10:04)
[2023-04-22] MEDS: SERTRALINE HCL 50 MG TAB PO SCH (10:05)
[2023-04-22 11:20] LABS: Folate (Folic Acid) 6.32 ng/mL (5.38-24)
[2023-04-22 14:08] LABS: Basophils # (auto) 0 10 ^3/uL (0-0.2); Eosinophils # (auto) 0 10 ^3/uL (0-0.8); Eosinophils % (auto) 0.4 % (0.0-7.0); Lymphocytes # (auto) 0.7 10 ^3/uL (0.4-5.4); Mean Corpuscular Volume 85.6 fL (80.0-100.0); Monocytes # (auto) 0.4 10 ^3/uL (0-1.3); Neutrophils # (auto) 3.1 10 ^3/uL (1.6-8.6); White Blood Cell 4.3 10^3/uL (4.4-10.8)
[2023-04-22 14:10] LABS: Basophils % (auto) 0.8 % (0.0-2.0); Hematocrit 25.2 % (36.0-46.0); Hemoglobin 8.6 g/dL (12.2-16.2); Lymphocytes % (auto) 15.8 % (10.0-50.0); Mean Corpuscular Hemoglobin 29.2 pg (28.0-32.0); Mean Corpuscular Hgb Conc. 34.2 g/dL (32.0-36.0); Monocytes % (auto) 9.8 % (0.0-12.0); Neutrophils % (auto) 73.2 % (37.0-80.0); Nucleated Red Blood Cells % 0.5 %; Red Blood Cells 2.94 10^6/uL (4.0-5.20); Red Cell Distribution Width 15.3 % (11.8-14.3)
[2023-04-22 14:39] LABS: Folate (Folic Acid) 13.18 ng/mL (5.38-24)
[2023-04-22] MEDS ORDERED: amLODIPine BESYLATE 5 MG TAB PO ONE (18:00)
[2023-04-22] MEDS: MORPHINE SULFATE INJ 2 MG/ml SYRG IV PRN (21:28)
[2023-04-22] MEDS: ATORVASTATIN 20 MG TAB PO SCH (22:00)
[2023-04-22 22:09] LABS: Basophils # (auto) 0 10 ^3/uL (0-0.2); Eosinophils # (auto) 0 10 ^3/uL (0-0.8); Nucleated Red Blood Cells % 0.1 %
[2023-04-22 22:11] LABS: Basophils % (auto) 0.4 % (0.0-2.0); Eosinophils % (auto) 0.9 % (0.0-7.0); Hematocrit 24.6 % (36.0-46.0); Hemoglobin 8.2 g/dL (12.2-16.2); Lymphocytes # (auto) 0.5 10 ^3/uL (0.4-5.4); Lymphocytes % (auto) 11.7 % (10.0-50.0); Mean Corpuscular Hgb Conc. 33.3 g/dL (32.0-36.0); Mean Corpuscular Volume 86.8 fL (80.0-100.0); Monocytes # (auto) 0.4 10 ^3/uL (0-1.3); Monocytes % (auto) 9.3 % (0.0-12.0); Neutrophils # (auto) 3.6 10 ^3/uL (1.6-8.6); Neutrophils % (auto) 77.7 % (37.0-80.0); Red Blood Cells 2.84 10^6/uL (4.0-5.20); Red Cell Distribution Width 15.3 % (11.8-14.3); White Blood Cell 4.7 10^3/uL (4.4-10.8)
[2023-04-23] VITALS (26 sets, daily range): BP systolic 128–168; BP diastolic 40–77
[2023-04-23] MEDS: SODIUM CHLOR 0.9% PF (SALINE LOCK) 10ML VIAL/SYR IV SCH ×3 (00:54→21:35)
[2023-04-23] MEDS: ACCU-CHEK COMFORT CURVE STRIP VI SCH ×5 (00:57→23:28)
[2023-04-23] MEDS: PANTOPRAZOLE 40mg/50ML NS AE 50 ML IV SCH ×5 (01:49→23:27)
[2023-04-23] MEDS: hydrALAZINE HCL 20 MG/ML VL IV PRN (03:47)
[2023-04-23 04:54] LABS: BUN/Creatinine Ratio 23.4 (10.0-20.0); Calcium 7.4 mg/dL (8.5-10.1); Potassium 3.1 mmol/L (3.5-5.1)
[2023-04-23] MEDS: PANCREATIC ENZYMES 4200 UNIT CAP PO SCH ×3 (06:00→21:33)
[2023-04-23] MEDS: FERROUS SULFATE 325mg EC TAB PO SCH ×3 (06:00→21:35)
[2023-04-23] MEDS: InsuLIN REG 1unit/0.01ml Soln (100units/ml) SC SCH ×5 (06:00→23:28)
[2023-04-23] MEDS: SODIUM CHLORIDE 0.9% 1,000 ML IV SCH ×2 (06:17→18:17)
[2023-04-23 09:09] LABS: Basophils # (auto) 0 10 ^3/uL (0-0.2); Basophils % (auto) 0.7 % (0.0-2.0); Eosinophils # (auto) 0 10 ^3/uL (0-0.8); Lymphocytes # (auto) 0.3 10 ^3/uL (0.4-5.4); Mean Corpuscular Hemoglobin 28.7 pg (28.0-32.0); Monocytes # (auto) 0.5 10 ^3/uL (0-1.3); Monocytes % (auto) 7.9 % (0.0-12.0); Nucleated Red Blood Cells % 0.1 %
[2023-04-23 09:11] LABS: Eosinophils % (auto) 0.6 % (0.0-7.0); Hematocrit 25.4 % (36.0-46.0); Hemoglobin 8.6 g/dL (12.2-16.2); Lymphocytes % (auto) 5.3 % (10.0-50.0); Mean Corpuscular Volume 84.5 fL (80.0-100.0); Neutrophils # (auto) 5.5 10 ^3/uL (1.6-8.6); Neutrophils % (auto) 85.5 % (37.0-80.0); Red Cell Distribution Width 15.1 % (11.8-14.3); White Blood Cell 6.5 10^3/uL (4.4-10.8)
[2023-04-23] MEDS ORDERED: amLODIPine BESYLATE 5 MG TAB PO SCH (10:00)
[2023-04-23] MEDS: SERTRALINE HCL 50 MG TAB PO SCH (10:41)
[2023-04-23] MEDS: CARVEDILOL 12.5 MG TAB PO SCH ×2 (10:42→21:35)
[2023-04-23] MEDS: amLODIPine BESYLATE 5 MG TAB PO SCH (10:43)
[2023-04-23] MEDS: POTASSIUM CHL 20MEQ/100ML 100 ML IV SCH ×2 (11:26→14:49)
[2023-04-23] MEDS ORDERED: TPN PER PHARMACY 0 ML IV SCH (15:45)
[2023-04-23] MEDS ORDERED: POTASSIUM CHL 20MEQ/100ML 100 ML IV ONE (16:00)
[2023-04-23] MEDS ORDERED: SODIUM PHOSPHATES 20 MEQ in SODIUM CHL 0.9% 100 ML IV ONE (17:45)
[2023-04-23] MEDS ORDERED: MAGNESIUM SULFATE 1GM/100ML 100 ML IV ONE (17:45)
[2023-04-23] MEDS: AMINO ACID INFUSION IN D10W 1,000 ML IV NR (20:00)
[2023-04-23] MEDS: ATORVASTATIN 20 MG TAB PO SCH (21:46)
[2023-04-24] VITALS (21 sets, daily range): BP systolic 97–159; BP diastolic 36–115
[2023-04-24 04:12] LABS: Basophils # (auto) 0 10 ^3/uL (0-0.2); Basophils % (auto) 0.3 % (0.0-2.0); Eosinophils # (auto) 0 10 ^3/uL (0-0.8); Eosinophils % (auto) 0.8 % (0.0-7.0); Hematocrit 25.8 % (36.0-46.0); Hemoglobin 8.9 g/dL (12.2-16.2); Lymphocytes # (auto) 0.6 10 ^3/uL (0.4-5.4); Lymphocytes % (auto) 10.1 % (10.0-50.0); Mean Corpuscular Hemoglobin 29.5 pg (28.0-32.0); Mean Corpuscular Hgb Conc. 34.6 g/dL (32.0-36.0); Mean Corpuscular Volume 85.2 fL (80.0-100.0); Monocytes # (auto) 0.5 10 ^3/uL (0-1.3); Neutrophils # (auto) 4.7 10 ^3/uL (1.6-8.6); Neutrophils % (auto) 79.8 % (37.0-80.0); Nucleated Red Blood Cells % 0.1 %; Red Blood Cells 3.03 10^6/uL (4.0-5.20); Red Cell Distribution Width 15.3 % (11.8-14.3); White Blood Cell 5.9 10^3/uL (4.4-10.8)
[2023-04-24 04:29] LABS: Albumin 2.7 g/dL (3.4-5.0); Calcium 7.5 mg/dL (8.5-10.1); Magnesium 1.8 mg/dL (1.6-2.6); Potassium 3.1 mmol/L (3.5-5.1)
[2023-04-24 04:32] LABS: Bilirubin, Direct 0.3 mg/dL (0-0.2); Bilirubin, Total 0.6 mg/dL (0.2-1.0); Phosphorus 2.6 mg/dL (2.5-4.90); Total Protein 5.4 g/dL (6.4-8.2)
[2023-04-24] MEDS: FERROUS SULFATE 325mg EC TAB PO SCH ×3 (05:07→22:00)
[2023-04-24] MEDS: PANCREATIC ENZYMES 4200 UNIT CAP PO SCH ×3 (05:34→21:44)
[2023-04-24] MEDS: ACCU-CHEK COMFORT CURVE STRIP VI SCH ×3 (05:34→14:06)
[2023-04-24] MEDS: SODIUM CHLORIDE 0.9% 1,000 ML IV SCH ×2 (05:57→22:09)
[2023-04-24] MEDS: PANTOPRAZOLE 40mg/50ML NS AE 50 ML IV SCH ×4 (05:57→16:45)
[2023-04-24] MEDS: InsuLIN REG 1unit/0.01ml Soln (100units/ml) SC SCH ×3 (05:57→16:47)
[2023-04-24] MEDS: SERTRALINE HCL 50 MG TAB PO SCH (08:34)
[2023-04-24] MEDS: SODIUM CHLOR 0.9% PF (SALINE LOCK) 10ML VIAL/SYR IV SCH ×2 (08:35→22:08)
[2023-04-24] MEDS: CARVEDILOL 12.5 MG TAB PO SCH ×2 (08:35→21:43)
[2023-04-24] MEDS: amLODIPine BESYLATE 5 MG TAB PO SCH (08:36)
[2023-04-24] MEDS: POTASSIUM CHL 20MEQ/100ML 100 ML IV SCH ×2 (09:48→10:54)
[2023-04-24] MEDS: AMINO ACID INFUSION IN D10W 1,000 ML IV NR (19:49)
[2023-04-24] MEDS ORDERED: TPN PER PHARMACY IV NR ×9 (20:00)
[2023-04-24] MEDS: ATORVASTATIN 20 MG TAB PO SCH (22:00)
[2023-04-25] VITALS (23 sets, daily range): BP systolic 113–153; BP diastolic 35–66
[2023-04-25] MEDS: PANTOPRAZOLE 40mg/50ML NS AE 50 ML IV SCH ×6 (01:09→23:42)
[2023-04-25] MEDS: InsuLIN REG 1unit/0.01ml Soln (100units/ml) SC SCH ×5 (01:14→23:45)
[2023-04-25] MEDS: ACCU-CHEK COMFORT CURVE STRIP VI SCH ×5 (01:15→23:42)
[2023-04-25 05:26] LABS: Albumin 2.6 g/dL (3.4-5.0); Calcium 7.3 mg/dL (8.5-10.1); Potassium 3.1 mmol/L (3.5-5.1)
[2023-04-25 05:29] LABS: BUN/Creatinine Ratio 15.1 (10.0-20.0); Bilirubin, Total 0.4 mg/dL (0.2-1.0); Phosphorus 2.1 mg/dL (2.5-4.90); Total Protein 5.3 g/dL (6.4-8.2)
[2023-04-25] MEDS: FERROUS SULFATE 325mg EC TAB PO SCH ×3 (06:00→21:39)
[2023-04-25] MEDS: PANCREATIC ENZYMES 4200 UNIT CAP PO SCH ×3 (06:37→21:39)
[2023-04-25 08:04] LABS: Basophils # (auto) 0 10 ^3/uL (0-0.2); Basophils % (auto) 0.4 % (0.0-2.0); Eosinophils # (auto) 0.1 10 ^3/uL (0-0.8); Eosinophils % (auto) 1.7 % (0.0-7.0); Hematocrit 26.6 % (36.0-46.0); Hemoglobin 9.1 g/dL (12.2-16.2); Lymphocytes # (auto) 0.6 10 ^3/uL (0.4-5.4); Lymphocytes % (auto) 15.4 % (10.0-50.0); Mean Corpuscular Hemoglobin 29.1 pg (28.0-32.0); Mean Corpuscular Hgb Conc. 34.2 g/dL (32.0-36.0); Monocytes # (auto) 0.5 10 ^3/uL (0-1.3); Monocytes % (auto) 11.8 % (0.0-12.0); Neutrophils # (auto) 2.9 10 ^3/uL (1.6-8.6); Neutrophils % (auto) 70.7 % (37.0-80.0); Red Blood Cells 3.13 10^6/uL (4.0-5.20); Red Cell Distribution Width 15.5 % (11.8-14.3); White Blood Cell 4.1 10^3/uL (4.4-10.8)
[2023-04-25] MEDS ORDERED: LIDOCAINE 2%HCL (LOCAL ANESTH.) INJ 20ML MDV ONE (09:47)
[2023-04-25] MEDS ORDERED: MIDAZOLAM HCL 2MG/2ML 2ml VIAL (1mg/ml) ONE (09:48)
[2023-04-25] MEDS ORDERED: fentaNYL CITRATE 100 MCG/2 ML VL ONE (09:48)
[2023-04-25] MEDS: CARVEDILOL 12.5 MG TAB PO SCH ×2 (10:00→21:39)
[2023-04-25] MEDS: amLODIPine BESYLATE 5 MG TAB PO SCH (10:00)
[2023-04-25] MEDS ORDERED: POTASSIUM PHOSPHATE 44 MEQ in D5W 5% 250 ML IV ONE (10:30)
[2023-04-25] MEDS: SODIUM CHLORIDE 0.9% 1,000 ML IV SCH (11:20)
[2023-04-25] MEDS: SODIUM CHLOR 0.9% PF (SALINE LOCK) 10ML VIAL/SYR IV SCH ×2 (12:17→21:39)
[2023-04-25] MEDS: SERTRALINE HCL 50 MG TAB PO SCH (14:34)
[2023-04-25] MEDS ORDERED: TPN PER PHARMACY IV NR ×10 (20:00)
[2023-04-25] MEDS: ATORVASTATIN 20 MG TAB PO SCH (21:38)
[2023-04-26] VITALS (34 sets, daily range): BP systolic 102–156; BP diastolic 44–63
[2023-04-26] MEDS: SODIUM CHLORIDE 0.9% 1,000 ML IV SCH ×3 (00:40→20:00)
[2023-04-26 04:09] LABS: Albumin 2.7 g/dL (3.4-5.0); Calcium 7.5 mg/dL (8.5-10.1); Magnesium 2.2 mg/dL (1.6-2.6); Potassium 3.5 mmol/L (3.5-5.1)
[2023-04-26 04:13] LABS: BUN/Creatinine Ratio 15.8 (10.0-20.0); Bilirubin, Total 0.5 mg/dL (0.2-1.0); Phosphorus 3.1 mg/dL (2.5-4.90); Total Protein 5.9 g/dL (6.4-8.2)
[2023-04-26] MEDS: PANTOPRAZOLE 40mg/50ML NS AE 50 ML IV SCH ×4 (05:16→17:05)
[2023-04-26] MEDS: FERROUS SULFATE 325mg EC TAB PO SCH ×3 (05:53→22:00)
[2023-04-26] MEDS: PANCREATIC ENZYMES 4200 UNIT CAP PO SCH ×3 (05:55→23:15)
[2023-04-26] MEDS: ACCU-CHEK COMFORT CURVE STRIP VI SCH ×3 (05:55→18:13)
[2023-04-26] MEDS: InsuLIN REG 1unit/0.01ml Soln (100units/ml) SC SCH ×3 (06:14→18:39)
[2023-04-26] MEDS: SODIUM CHLOR 0.9% PF (SALINE LOCK) 10ML VIAL/SYR IV SCH ×2 (07:20→23:15)
[2023-04-26] MEDS: SERTRALINE HCL 50 MG TAB PO SCH (08:26)
[2023-04-26] MEDS: CARVEDILOL 12.5 MG TAB PO SCH ×2 (08:27→23:15)
[2023-04-26] MEDS: amLODIPine BESYLATE 5 MG TAB PO SCH (08:29)
[2023-04-26 13:00] LABS: Basophils # (auto) 0.1 10 ^3/uL (0-0.2); Basophils % (auto) 1.2 % (0.0-2.0); Eosinophils # (auto) 0.1 10 ^3/uL (0-0.8); Eosinophils % (auto) 2.2 % (0.0-7.0); Hematocrit 28.4 % (36.0-46.0); Hemoglobin 9.5 g/dL (12.2-16.2); Lymphocytes # (auto) 0.7 10 ^3/uL (0.4-5.4); Lymphocytes % (auto) 15.9 % (10.0-50.0); Mean Corpuscular Hemoglobin 28.6 pg (28.0-32.0); Mean Corpuscular Hgb Conc. 33.3 g/dL (32.0-36.0); Mean Corpuscular Volume 85.8 fL (80.0-100.0); Monocytes # (auto) 0.4 10 ^3/uL (0-1.3); Monocytes % (auto) 9.7 % (0.0-12.0); Red Blood Cells 3.31 10^6/uL (4.0-5.20); White Blood Cell 4.2 10^3/uL (4.4-10.8)
[2023-04-26 13:20] LABS: Potassium 3.7 mmol/L (3.5-5.1)
[2023-04-26 13:27] LABS: BUN/Creatinine Ratio 20.3 (10.0-20.0)
[2023-04-26] MEDS ORDERED: TPN PER PHARMACY IV NR ×10 (20:00)
[2023-04-26] MEDS: ATORVASTATIN 20 MG TAB PO SCH (22:00)
[2023-04-27] VITALS (16 sets, daily range): BP systolic 118–183; BP diastolic 46–79
[2023-04-27] MEDS: PANTOPRAZOLE 40mg/50ML NS AE 50 ML IV SCH ×5 (00:59→22:27)
[2023-04-27 04:48] LABS: Albumin 2.4 g/dL (3.4-5.0); Calcium 7.8 mg/dL (8.5-10.1)
[2023-04-27 04:50] LABS: BUN/Creatinine Ratio 18.8 (10.0-20.0)
[2023-04-27 04:53] LABS: Bilirubin, Total 0.4 mg/dL (0.2-1.0); Phosphorus 2.6 mg/dL (2.5-4.90); Total Protein 5.3 g/dL (6.4-8.2)
[2023-04-27] MEDS: FERROUS SULFATE 325mg EC TAB PO SCH ×3 (06:00→22:00)
[2023-04-27] MEDS: ACCU-CHEK COMFORT CURVE STRIP VI SCH ×4 (06:00→15:07)
[2023-04-27] MEDS: PANCREATIC ENZYMES 4200 UNIT CAP PO SCH ×3 (06:56→22:21)
[2023-04-27] MEDS: InsuLIN REG 1unit/0.01ml Soln (100units/ml) SC SCH ×4 (07:00→16:37)
[2023-04-27] MEDS: SERTRALINE HCL 50 MG TAB PO SCH (07:43)
[2023-04-27] MEDS: amLODIPine BESYLATE 5 MG TAB PO SCH (07:44)
[2023-04-27] MEDS: CARVEDILOL 12.5 MG TAB PO SCH ×2 (07:44→22:21)
[2023-04-27] MEDS: SODIUM CHLOR 0.9% PF (SALINE LOCK) 10ML VIAL/SYR IV SCH ×2 (07:45→22:27)
[2023-04-27] MEDS ORDERED: SODIUM PHOSPHATES 20 MEQ in SODIUM CHL 0.9% 100 ML IV ONE (10:30)
[2023-04-27] MEDS ORDERED: TPN PER PHARMACY IV NR ×11 (20:00)
[2023-04-27] MEDS: ATORVASTATIN 20 MG TAB PO SCH (22:22)
[2023-04-27] MEDS: SODIUM CHLORIDE 0.9% 1,000 ML IV SCH (22:27)
[2023-04-28] VITALS (28 sets, daily range): BP systolic 94–143; BP diastolic 40–56
[2023-04-28 00:46] LABS: Hematocrit 25.3 % (36.0-46.0); Hemoglobin 8.4 g/dL (12.2-16.2)
[2023-04-28] MEDS: PANTOPRAZOLE 40mg/50ML NS AE 50 ML IV SCH ×5 (03:02→21:56)
[2023-04-28] MEDS: ACCU-CHEK COMFORT CURVE STRIP VI SCH ×4 (06:00→14:41)
[2023-04-28] MEDS: InsuLIN REG 1unit/0.01ml Soln (100units/ml) SC SCH ×4 (06:00→16:50)
[2023-04-28] MEDS: FERROUS SULFATE 325mg EC TAB PO SCH ×3 (06:00→21:57)
[2023-04-28] MEDS: PANCREATIC ENZYMES 4200 UNIT CAP PO SCH ×3 (06:00→22:00)
[2023-04-28 06:17] LABS: Potassium 4.1 mmol/L (3.5-5.1)
[2023-04-28 06:27] LABS: Albumin 2.2 g/dL (3.4-5.0); BUN/Creatinine Ratio 36.1 (10.0-20.0); Bilirubin, Total 0.3 mg/dL (0.2-1.0); Calcium 7.4 mg/dL (8.5-10.1); Magnesium 2.3 mg/dL (1.6-2.6); Phosphorus 2.9 mg/dL (2.5-4.90); Total Protein 4.8 g/dL (6.4-8.2)
[2023-04-28 06:50] LABS: Basophils # (auto) 0 10 ^3/uL (0-0.2); Eosinophils # (auto) 0.1 10 ^3/uL (0-0.8); Monocytes # (auto) 0.6 10 ^3/uL (0-1.3); Neutrophils # (auto) 3.2 10 ^3/uL (1.6-8.6); Red Blood Cells 2.62 10^6/uL (4.0-5.20)
[2023-04-28 06:51] LABS: Basophils % (auto) 0.4 % (0.0-2.0); Eosinophils % (auto) 2.4 % (0.0-7.0); Hemoglobin 7.6 g/dL (12.2-16.2); Lymphocytes # (auto) 0.8 10 ^3/uL (0.4-5.4); Lymphocytes % (auto) 17.6 % (10.0-50.0); Mean Corpuscular Volume 87.8 fL (80.0-100.0); Monocytes % (auto) 11.8 % (0.0-12.0); Neutrophils % (auto) 67.8 % (37.0-80.0); Nucleated Red Blood Cells % 0.3 %; Red Cell Distribution Width 15.9 % (11.8-14.3); White Blood Cell 4.7 10^3/uL (4.4-10.8)
[2023-04-28] MEDS: ONDANSETRON HCL 4 MG/2 ML VIAL IV PRN (07:51)
[2023-04-28] MEDS: SODIUM CHLORIDE 0.9% 1,000 ML IV SCH ×2 (08:43→20:00)
[2023-04-28] MEDS: SODIUM CHLOR 0.9% PF (SALINE LOCK) 10ML VIAL/SYR IV SCH ×2 (08:44→21:56)
[2023-04-28] MEDS: SERTRALINE HCL 50 MG TAB PO SCH (10:00)
[2023-04-28] MEDS: CARVEDILOL 12.5 MG TAB PO SCH ×2 (10:00→21:57)
[2023-04-28] MEDS: amLODIPine BESYLATE 5 MG TAB PO SCH (10:00)
[2023-04-28 18:28] LABS: Basophils # (auto) 0 10 ^3/uL (0-0.2); Basophils % (auto) 0.5 % (0.0-2.0); Eosinophils # (auto) 0.1 10 ^3/uL (0-0.8); Eosinophils % (auto) 1.9 % (0.0-7.0); Hematocrit 28.9 % (36.0-46.0); Hemoglobin 9.5 g/dL (12.2-16.2); Lymphocytes % (auto) 18.4 % (10.0-50.0); Mean Corpuscular Hemoglobin 28.4 pg (28.0-32.0); Mean Corpuscular Hgb Conc. 32.8 g/dL (32.0-36.0); Mean Corpuscular Volume 86.3 fL (80.0-100.0); Monocytes # (auto) 0.5 10 ^3/uL (0-1.3); Monocytes % (auto) 10.1 % (0.0-12.0); Neutrophils # (auto) 3.7 10 ^3/uL (1.6-8.6); Neutrophils % (auto) 69.1 % (37.0-80.0); Nucleated Red Blood Cells % 0.1 %; Red Blood Cells 3.35 10^6/uL (4.0-5.20); Red Cell Distribution Width 16.6 % (11.8-14.3); White Blood Cell 5.3 10^3/uL (4.4-10.8)
[2023-04-28] MEDS ORDERED: TPN PER PHARMACY IV NR ×11 (20:00)
[2023-04-28] MEDS: ATORVASTATIN 20 MG TAB PO SCH (22:00)
[2023-04-29] VITALS (71 sets, daily range): BP systolic 92–165; BP diastolic 29–68
[2023-04-29 00:06] LABS: Hemoglobin 8.6 g/dL (12.2-16.2)
[2023-04-29] MEDS: InsuLIN REG 1unit/0.01ml Soln (100units/ml) SC SCH ×4 (00:55→17:31)
[2023-04-29] MEDS: ACCU-CHEK COMFORT CURVE STRIP VI SCH ×4 (00:56→17:58)
[2023-04-29] MEDS: PANTOPRAZOLE 40mg/50ML NS AE 50 ML IV SCH ×5 (03:29→22:02)
[2023-04-29] MEDS: ONDANSETRON HCL 4 MG/2 ML VIAL IV PRN ×3 (05:21→22:27)
[2023-04-29] MEDS: MORPHINE SULFATE INJ 2 MG/ml SYRG IV PRN ×2 (05:47→10:51)
[2023-04-29] MEDS: PANCREATIC ENZYMES 4200 UNIT CAP PO SCH ×3 (06:00→21:45)
[2023-04-29] MEDS: FERROUS SULFATE 325mg EC TAB PO SCH ×3 (06:00→21:45)
[2023-04-29 06:17] LABS: Hemoglobin 7.8 g/dL (12.2-16.2); Mean Corpuscular Hemoglobin 29.1 pg (28.0-32.0); Mean Corpuscular Hgb Conc. 33.8 g/dL (32.0-36.0); Mean Corpuscular Volume 86.1 fL (80.0-100.0)
[2023-04-29 06:22] LABS: Potassium 4.7 mmol/L (3.5-5.1)
[2023-04-29 06:24] LABS: Red Blood Cells 2.68 10^6/uL (4.0-5.20); Red Cell Distribution Width 16.7 % (11.8-14.3); White Blood Cell 7.9 10^3/uL (4.4-10.8)
[2023-04-29 06:26] LABS: BUN/Creatinine Ratio 48.4 (10.0-20.0); Bilirubin, Total 0.4 mg/dL (0.2-1.0); Magnesium 2.3 mg/dL (1.6-2.6); Phosphorus 2.4 mg/dL (2.5-4.90); Total Protein 4.3 g/dL (6.4-8.2)
[2023-04-29 06:33] LABS: Band Neutrophils % (manual) 0; Basophils % (manual) 0 (0.0-2.0); Blast Cells 0; Metamyelocytes % 0; Myelocytes % 0; Promyelocytes % 0; Reactive Lymphocytes 0
[2023-04-29 07:41] LABS: Eosinophils % (manual) 3 (0-7); Lymphocytes % (manual) 13 (10.0-50.0); Monocytes % (manual) 7 (0-12)
[2023-04-29] MEDS: SERTRALINE HCL 50 MG TAB PO SCH (10:00)
[2023-04-29] MEDS: amLODIPine BESYLATE 5 MG TAB PO SCH (10:00)
[2023-04-29] MEDS: CARVEDILOL 12.5 MG TAB PO SCH ×2 (10:00→21:45)
[2023-04-29] MEDS: SODIUM CHLORIDE 0.9% 1,000 ML IV SCH ×2 (10:33→17:54)
[2023-04-29] MEDS: SODIUM CHLOR 0.9% PF (SALINE LOCK) 10ML VIAL/SYR IV SCH ×2 (10:36→21:43)
[2023-04-29] MEDS ORDERED: SODIUM PHOSP 20MEQ(15MMOL) IN NS 100 ML IV ONE (11:30)
[2023-04-29] MEDS ORDERED: TPN PER PHARMACY IV NR ×11 (20:00)
[2023-04-29 21:12] LABS: Hematocrit 31.7 % (36.0-46.0); Hemoglobin 10.5 g/dL (12.2-16.2)
[2023-04-29] MEDS: INSULIN LANTUS (GLARGINE) 1 /0.01ml (100units/ml) SC SCH (21:40)
[2023-04-29] MEDS: ATORVASTATIN 20 MG TAB PO SCH (21:45)
[2023-04-30] VITALS (24 sets, daily range): BP systolic 106–179; BP diastolic 39–67
[2023-04-30] MEDS: ACCU-CHEK COMFORT CURVE STRIP VI SCH ×4 (00:07→18:15)
[2023-04-30] MEDS: InsuLIN REG 1unit/0.01ml Soln (100units/ml) SC SCH ×4 (00:10→18:00)
[2023-04-30] MEDS: PANTOPRAZOLE 40mg/50ML NS AE 50 ML IV SCH ×5 (03:11→22:30)
[2023-04-30 05:24] LABS: Basophils # (auto) 0.1 10 ^3/uL (0-0.2); Basophils % (auto) 0.3 % (0.0-2.0); Eosinophils # (auto) 0 10 ^3/uL (0-0.8); Hematocrit 28.2 % (36.0-46.0); Hemoglobin 9.7 g/dL (12.2-16.2); Lymphocytes % (auto) 8.2 % (10.0-50.0); Mean Corpuscular Hemoglobin 30.2 pg (28.0-32.0); Mean Corpuscular Hgb Conc. 34.2 g/dL (32.0-36.0); Mean Corpuscular Volume 88.3 fL (80.0-100.0); Monocytes # (auto) 2.5 10 ^3/uL (0-1.3); Monocytes % (auto) 10.1 % (0.0-12.0); Neutrophils # (auto) 19.9 10 ^3/uL (1.6-8.6); Neutrophils % (auto) 81.4 % (37.0-80.0); Nucleated Red Blood Cells % 0.2 %; Red Cell Distribution Width 15.3 % (11.8-14.3); White Blood Cell 24.5 10^3/uL (4.4-10.8)
[2023-04-30] MEDS: ONDANSETRON HCL 4 MG/2 ML VIAL IV PRN (05:38)
[2023-04-30 05:42] LABS: Potassium 4.6 mmol/L (3.5-5.1)
[2023-04-30 05:49] LABS: BUN/Creatinine Ratio 36.9 (10.0-20.0); Bilirubin, Total 0.4 mg/dL (0.2-1.0); Calcium 7.2 mg/dL (8.5-10.1); Magnesium 2.3 mg/dL (1.6-2.6); Total Protein 4.3 g/dL (6.4-8.2)
[2023-04-30] MEDS: FERROUS SULFATE 325mg EC TAB PO SCH ×3 (06:00→22:00)
[2023-04-30] MEDS: PANCREATIC ENZYMES 4200 UNIT CAP PO SCH ×3 (06:00→22:00)
[2023-04-30] MEDS: MORPHINE SULFATE INJ 2 MG/ml SYRG IV PRN ×2 (08:57→16:36)
[2023-04-30] MEDS: CARVEDILOL 12.5 MG TAB PO SCH ×2 (10:00→22:00)
[2023-04-30] MEDS: SERTRALINE HCL 50 MG TAB PO SCH (10:00)
[2023-04-30] MEDS: amLODIPine BESYLATE 5 MG TAB PO SCH (10:00)
[2023-04-30 11:12] LABS: Hemoglobin 8.6 g/dL (12.2-16.2)
[2023-04-30] MEDS: SODIUM CHLORIDE 0.9% 1,000 ML IV SCH (11:20)
[2023-04-30] MEDS: SODIUM CHLOR 0.9% PF (SALINE LOCK) 10ML VIAL/SYR IV SCH ×2 (12:11→22:34)
[2023-04-30] MEDS ORDERED: TPN PER PHARMACY IV NR ×9 (20:00)
[2023-04-30 20:21] LABS: Hematocrit 24.2 % (36.0-46.0); Hemoglobin 8.2 g/dL (12.2-16.2)
[2023-04-30] MEDS: ATORVASTATIN 20 MG TAB PO SCH (22:00)
[2023-04-30] MEDS: INSULIN LANTUS (GLARGINE) 1 /0.01ml (100units/ml) SC SCH (23:31)
[2023-05-01] VITALS (18 sets, daily range): BP systolic 145–166; BP diastolic 40–65
[2023-05-01] MEDS: ACCU-CHEK COMFORT CURVE STRIP VI SCH ×3 (00:44→11:55)
[2023-05-01] MEDS: InsuLIN REG 1unit/0.01ml Soln (100units/ml) SC SCH ×3 (00:46→11:57)
[2023-05-01] MEDS: PANTOPRAZOLE 40mg/50ML NS AE 50 ML IV SCH ×2 (03:23→09:29)
[2023-05-01 05:13] LABS: Albumin 1.8 g/dL (3.4-5.0); Calcium 7.2 mg/dL (8.5-10.1); Magnesium 2.2 mg/dL (1.6-2.6); Potassium 4.5 mmol/L (3.5-5.1)
[2023-05-01 05:17] LABS: BUN/Creatinine Ratio 35.6 (10.0-20.0); Bilirubin, Total 0.4 mg/dL (0.2-1.0); Phosphorus 2.7 mg/dL (2.5-4.90); Total Protein 4.3 g/dL (6.4-8.2)
[2023-05-01] MEDS: FERROUS SULFATE 325mg EC TAB PO SCH (06:00)
[2023-05-01] MEDS: PANCREATIC ENZYMES 4200 UNIT CAP PO SCH (06:00)
[2023-05-01] MEDS: ONDANSETRON HCL 4 MG/2 ML VIAL IV PRN (07:54)
[2023-05-01 09:00] LABS: Hematocrit 20.9 % (36.0-46.0); Mean Corpuscular Hemoglobin 29.7 pg (28.0-32.0); Mean Corpuscular Hgb Conc. 32.8 g/dL (32.0-36.0); Mean Corpuscular Volume 90.7 fL (80.0-100.0); Red Blood Cells 2.31 10^6/uL (4.0-5.20); Red Cell Distribution Width 16.1 % (11.8-14.3)
[2023-05-01 09:03] LABS: Hemoglobin 6.9 g/dL (12.2-16.2)
[2023-05-01 09:04] LABS: Band Neutrophils % (manual) 0; Basophils % (manual) 0 (0.0-2.0); Blast Cells 0; Eosinophils % (manual) 0 (0-7); Metamyelocytes % 0; Myelocytes % 0; Promyelocytes % 0; Reactive Lymphocytes 0
[2023-05-01] MEDS: SODIUM CHLOR 0.9% PF (SALINE LOCK) 10ML VIAL/SYR IV SCH (09:29)
[2023-05-01] MEDS: amLODIPine BESYLATE 5 MG TAB PO SCH (09:30)
[2023-05-01] MEDS: CARVEDILOL 12.5 MG TAB PO SCH (09:30)
[2023-05-01] MEDS: SERTRALINE HCL 50 MG TAB PO SCH (09:30)
[2023-05-01 11:01] LABS: Lymphocytes % (manual) 11 (10.0-50.0); Monocytes % (manual) 8 (0-12)
[2023-05-01] MEDS ORDERED: SODIUM CHLORIDE 0.9% 1,000 ML IV SCH (12:45)
[2023-05-01] MEDS: hydrALAZINE HCL 20 MG/ML VL IV PRN (12:58)
== END 2023-05-01 14:25 | disposition short-term general hospital (02) | DRG 377 ==
LOC: EDBD 03:43 → ER 03:43 → TELE 12:36 → TELE-EAST 17:28 → ICU WEST 04-21 10:56 → DOU IN ICU 04-26 15:39
PROVIDERS: ADMIT Internal Medicine; ATTEND Internal Medicine
PROC: 30233N1 Transfusion of Nonautologous Red Blood Cells into Peripheral Vein, Percutaneous Approach (ICD-10-PCS; 2023-04-19)
PROC: 0DJD8ZZ Inspection of Lower Intestinal Tract, Via Natural or Artificial Opening Endoscopic (ICD-10-PCS; principal; 2023-04-20 14:15)
PROC: 0DJ08ZZ Inspection of Upper Intestinal Tract, Via Natural or Artificial Opening Endoscopic (ICD-10-PCS; 2023-04-21)
PROC: 02HV33Z Insertion of Infusion Device into Superior Vena Cava, Percutaneous Approach (ICD-10-PCS; 2023-04-21)
PROC: B548ZZA Ultrasonography of Superior Vena Cava, Guidance (ICD-10-PCS; 2023-04-21)
PROC: 30233N1 Transfusion of Nonautologous Red Blood Cells into Peripheral Vein, Percutaneous Approach (ICD-10-PCS; 2023-04-22)
PROC: 30233R1 Transfusion of Nonautologous Platelets into Peripheral Vein, Percutaneous Approach (ICD-10-PCS; 2023-04-23)
PROC: 30233N1 Transfusion of Nonautologous Red Blood Cells into Peripheral Vein, Percutaneous Approach (ICD-10-PCS; 2023-04-28)
PROC: 30233N1 Transfusion of Nonautologous Red Blood Cells into Peripheral Vein, Percutaneous Approach (ICD-10-PCS; 2023-04-29)
PROC: 30233N1 Transfusion of Nonautologous Red Blood Cells into Peripheral Vein, Percutaneous Approach (ICD-10-PCS; 2023-05-01)
DX: K26.4 Chronic or unspecified duodenal ulcer with hemorrhage (principal); E43 Unspecified severe protein-calorie malnutrition; N17.0 Acute kidney failure with tubular necrosis; D62 Acute posthemorrhagic anemia; K86.1 Other chronic pancreatitis; R57.9 Shock, unspecified; K21.9 Gastro-esophageal reflux disease without esophagitis; D63.8 Anemia in other chronic diseases classified elsewhere; E11.22 Type 2 diabetes mellitus with diabetic chronic kidney disease; E78.5 Hyperlipidemia, unspecified; I12.9 Hypertensive chronic kidney disease with stage 1 through stage 4 chronic kidney disease, or unspecified chronic kidney disease; N18.32 Chronic kidney disease, stage 3b; D69.6 Thrombocytopenia, unspecified; E86.1 Hypovolemia; E11.65 Type 2 diabetes mellitus with hyperglycemia; E87.5 Hyperkalemia; F32.9 Major depressive disorder, single episode, unspecified; K57.30 Diverticulosis of large intestine without perforation or abscess without bleeding; F41.9 Anxiety disorder, unspecified; R79.89 Other specified abnormal findings of blood chemistry; Z20.822 Contact with and (suspected) exposure to COVID-19; Z82.3 Family history of stroke; Z82.49 Family history of ischemic heart disease and other diseases of the circulatory system; Z82.0 Family history of epilepsy and other diseases of the nervous system; Z80.49 Family history of malignant neoplasm of other genital organs; Z83.3 Family history of diabetes mellitus; Z80.1 Family history of malignant neoplasm of trachea, bronchus and lung; Z85.07 Personal history of malignant neoplasm of pancreas; Z90.3 Acquired absence of stomach [part of]; Z90.710 Acquired absence of both cervix and uterus; Z68.24 Body mass index [BMI] 24.0-24.9, adult
CPT/HCPCS: 36415; 36569; 43235; 45378; 70450; 70551; 71045; 74177; 80048; 80053; 80076; 82270; 82565; 82607; 82746; 82962; 83615; 83735; 84100; 84478; 84484; 84520; 85007; 85014; 85018; 85025; 85027; 85610; 85652; 85730; 86038; 86850; 86900; 86901; 86920; 87081; 87426; 93005; 93306; 95819; 96365; 96367; 96368; 96375; 99291; C9113; G0378; J0696; J1815; J2250; J2405; J3480; J7060

== ENCOUNTER 2024-08-25 15:45 | Emergency (ER) | payer OTHER, MEDICAID ==
[~2024-08-25] VITALS: Ht 157.5 cm; Wt 60.1 kg
[~2024-08-25 15:45] MED LIST changes: -CIPR500T4 PO; -PANC12002 PO; +PANC1CAP54 PO
[2024-08-25 16:20] VITALS: BP 158/67; PULSE 63; RESP 18; TEMP 98.2; O2SAT 98
[2024-08-25] MEDS: methylPREDNISolone SOD SUCC 125 MG/2 ML VL IM ONE (16:46)
[2024-08-25] MEDS: FAMOTIDINE 20 MG TAB PO ONE (16:46)
[2024-08-25] MEDS: LORATADINE 10 MG TAB PO ONE (16:46)
[2024-08-25] MEDS ORDERED: CEPH500C PO (17:19)
== END 2024-08-25 17:22 | disposition home or self-care (01) ==
LOC: ER 15:48
DX: T78.40XA Allergy, unspecified, initial encounter (principal); F41.9 Anxiety disorder, unspecified; F32.9 Major depressive disorder, single episode, unspecified; K21.9 Gastro-esophageal reflux disease without esophagitis; E78.5 Hyperlipidemia, unspecified; I12.9 Hypertensive chronic kidney disease with stage 1 through stage 4 chronic kidney disease, or unspecified chronic kidney disease; E11.22 Type 2 diabetes mellitus with diabetic chronic kidney disease; N18.9 Chronic kidney disease, unspecified; Z79.899 Other long term (current) drug therapy; X58.XXXA Exposure to other specified factors, initial encounter
CPT/HCPCS: 96372; 99283; J2919

== ENCOUNTER 2025-05-02 17:05 | Inpatient (IN) | payer MEDICARE, MEDICAID ==
[~2025-05-02] VITALS: Ht 158.8 cm; Wt 61.1 kg
[~2025-05-02 17:05] MED LIST changes: +CEPH500C PO; +CHOL1TAB30 PO; +DONE5TAB80 PO; +QUET50TA27 PO; +RAME8TAB26 PO; +SIMV20TA20 PO; +TEMA15CA PO; +TRAM50TA2 PO; +TRAZ-227 PO
--- NOTE | 2025-05-02 17:31 | ED.PDOC ---
GI ASSESSMENT HPI Comments 84 y.o female with PMHx of dementia, PUD, GERD, pancreatitis and TIA, presents to the ED for a chief complaint of upper abdominal pain associated with nausea that started 3 days ago. Patient reports pain is constant and presents with mild non bloody emesis today. Daughter at bedside reports patient had complications 2 years ago where she was diagnosed with PUD and pancreatitis, was flown out to [facility] for an abdominal surgery in which turned into a critical embolization invasive procedure. Daughter was concerned as she was told then that patient had stage 4 cancer, was sent home on hospice and was given Morphine every two hours. Daughter states her sister had patient at that time of hospice care and recently took over caregiver duties and is awaiting for an appointment to see an oncologist to rule out cancer. No further information was given to her from [facility] or sister concerning the cancer. Patient denies any bleeding, fever, chills, diarrhea, chest pain, SOB. She also denies alcohol, tobacco or substance use. Chief Complaint: Abdominal Pain Time Seen by MD: 19:35 Primary Care Provider: DICK Reviewed Notes: Nurses Notes, Rn Transition Notes, Medications, Allergies Allergies: Coded Allergies: NO KNOWN ALLERGIES (Verified , 08/26/15) Home Meds Active Scripts Cephalexin Monohydrate (Cephalexin) 500 Mg Cap, 1 CAP PO QID for 5 Days, #20 CAP 0 Refills Prov:GISSELLE NGUYỄN NP 08/25/24 Hydrochlorothiazide W/Triamter (Hctz/Triamterene) 1 Tab Tab, 1 TAB PO DAILY, #30 TAB Prov:MESERET EVANS MD 08/24/21 Reported Medications Hydrocodone-Acetaminophen (Hydrocodone/Acetaminophen 5-325 mg) 1 Tab Tab, 1 TAB PO Q6HPRN PRN for for pain, TAB 08/24/21 Docusate Sodium (Docusate Sodium) 100 Mg Tab, 100 MG PO BID, TAB 08/24/21 Carvedilol (Carvedilol) 12.5 Mg Tab, 1 TAB PO BID, #180 TAB 1 Refill 08/24/21 Ferrous Sulfate (FERROUS SULFATE) 325 Mg Tb, 1 TAB PO TID, #30 TAB 3 Refills 08/24/21 Pantoprazole Sodium Sesquihydr (Pantoprazole Sodium) 40 Mg Tab, 40 MG PO BID, TAB 08/24/21 Gabapentin (Gabapentin) 300 Mg Cap, 1 CAP PO HS, #90 CAP 5 Refills 08/24/21 Atorvastatin Calcium (ATORVASTATIN CALCIUM) 40 Mg Tab, 1 TAB PO HS, #30 TAB 5 Refills 08/24/21 Pancreatic Enzymes (Creon) 12,000 Unt Cap, 03552 UNT PO TID, CAP 08/24/21 Potassium Chloride (Klor-Con M20) 20 Meq Tab, 20 MEQ PO TID, TAB 08/24/21 Sertraline Hcl (Zoloft) 100 Mg Tab, 1.5 TAB PO DAILY, #30 TAB 5 Refills 08/24/21 Information Source: Patient Mode of Arrival: EMS Timing: Hours Duration: Since onset Quality: Aching Vomitus: None Stool: Normal Severity: Moderate Recent Hx of: None Pain Location: LUQ Modifying Factors: Nothing Associated sign and symptoms: Nausea, Abdominal Pain Past Medical History PAST MEDICAL HISTORY: Anxiety, CKF, Dementia, Depression, DM, GERD, High Lipids, HTN, PUD Past Medical History (Other): Daughter states patient was told she had stage IV cancer with liver lesions in 2022. This has not been confirmed. Surgical History: Cholecystectomy, Hysterectomy, Tonsillectomy Family History Family History: No family hx of HTN Family History (Other): Mother: dementia Social History Smoker: Non-Smoker Alcohol: Denies ETOH Use Drugs: Denies Drug Use Lives In: Home Constitutional: denies: chills, diaphoresis, fatigue, fever, malaise, sweats, weakness, others EENTM: denies: blurred vision, double vision, ear bleeding, ear discharge, ear drainage, ear pain, ear ringing, eye pain, eye redness, hearing loss, mouth pain, mouth swelling, nasal discharge, nose bleeding, nose congestion, nose pain, photophobia, tearing, throat pain, throat swelling, voice changes, others Respiratory: denies: cough, hemoptysis, orthopnea, SOB at rest, shortness of breath, SOB with excertion, stridor, wheezing, others Cardiovascular: denies: chest pain, dizzy spells, diaphoresis, Dyspnea on exertion, edema, irregular heart beat, left arm pain, lightheadedness, palpitations, PND, syncope, others Gastrointestinal: reports: abdominal pain, nausea, vomiting; denies: abdomen distended, blood streaked bowels, constipated, diarrhea, dysphagia, difficulty swallowing, hematemesis, melena, poor appetite, poor fluid intake, rectal bleeding, rectal pain, others Genitourinary: denies: abnormal vagina bleeding, burning, dyspareunia, dysuria, flank pain, frequency, hematuria, incontinence, pain, , vagina discharge, urgency, others Neurological: denies: dizziness, fainting, headache, left sided numbness, left sided weakness, numbness, paresthesia, pre-existing deficit, right sided numbn ess, right sided weakness, seizure, speech problems, tingling, tremors, weakness, others Musculoskeletal: denies: back pain, gout, joint pain, joint swelling, muscle pain, muscle stiffness, neck pain, others Integumetry: denies: bruises, change in color, change in hair/nails, dryness, laceration, lesions, lumps, rash, wounds, others Allergic/Immunocompromised: denies: Difficulty Healing, Frequent Infections, Hives, Itching, others Hematologic/Lymphatic: denies: anemia, blood clots, easy bleeding, easy bruising, swollen glands, others Endocrine: denies: excessive hunger, excessive sweating, excessive thirst, excessive urination, flushing, intolerance to cold, intolerance to heat, unexplained weight gain, unexplained weight loss, others Psychiatric: denies: anxiety, bipolar disorder, depression, hopeless, panic disorder, schizophrenia, sleepless, suicidal, others All Other Systems: Reviewed and Negative Physical Exam General Appearance: Mild Distress HEENT: Other (Pupils and face symmetric. Dry mucous membranes.) Neck: Full Range of Motion, Normal Inspection Respiratory: Lungs Clear, No Accessory Muscle Use, No Respiratory Distress, Normal Breath Sounds Cardiovascular: No Edema, No JVD, Regular Rate/Rhythm Breast Exam: Deferred Gastrointestinal: Epigastric, Tenderness Genitalia: Deferred Pelvic: Deferred Rectal: Deferred Extremities: Normal inspection, Normal range of motion, Non-tender, No pedal edema Neurologic: Alert (Oriented x3), Normal Affect, Normal Mood, Other (Ambulatory) Cerebellar Function: NOT DONE Reflexes: NOT DONE Skin: Dry, Normal Color, Warm Lymphatic: NOT DONE Was a procedure done? Was a procedure done?: No GI differential Dx Differential Diagnosis: Bowel Obstruction, Constipation, Diverticular disease, Gastritis/PUD, Gastroenteritis, GI hemorrhage, Inflammatory BD, Ischemic Bowel, Pancreatitis, Electrolyte Imbalance, Food Poisoning, Bacterial, Viral, Hypovolemia, Renal Failure, Anemia, Stress Ulcer X-Ray, Labs, Meds, VS Vital Signs Date Time Temp Pulse Resp B/P (MAP) Pulse Ox O2 Delivery O2 Flow Rate FiO2 05/02/25 19:28 97.9 55 14 124/69 (87) 98 97.9 05/02/25 18:18 60 05/02/25 18:07 98.6 61 17 143/62 (89) 99 98.6 05/02/25 17:26 Room Air* 0 21 05/02/25 17:08 98.6 64 16 122/50 (74) 98 98.6 05/02/25 17:06 63 Lab Test 05/02/25 19:00 05/02/25 17:52 Range/Units Troponin I High Sensitivity 8 8 </=34 ng/L White Blood Count 4.8 4.4-10.8 10^3/uL Red Blood Count 4.08 4.0-5.20 10^6/uL Hemoglobin 11.9 L 12.2-16.2 g/dL Hematocrit 35.4 L 36.0-46.0 % Mean Corpuscular Volume 86.8 80.0-100.0 fL Mean Corpuscular Hemoglobin 29.2 28.0-32.0 pg Mean Corpuscular Hemoglobin Concent 33.7 32.0-36.0 g/dL Red Cell Distribution Width 14.4 H 11.8-14.3 % Platelet Count 73 L 140-450 10^3/uL Mean Platelet Volume 10.5 6.9-10.8 fL Neutrophils (%) (Auto) 68.0 37.0-80.0 % Lymphocytes (%) (Auto) 22.4 10.0-50.0 % Monocytes (%) (Auto) 8.6 0.0-12.0 % Eosinophils (%) (Auto) 0.5 0.0-7.0 % Basophils (%) (Auto) 0.5 0.0-2.0 % Neutrophils # (Auto) 3.3 1.6-8.6 10 ^3/uL Lymphocytes # (Auto) 1.1 0.4-5.4 10 ^3/uL Monocytes # (Auto) 0.4 0-1.3 10 ^3/uL Eosinophils # (Auto) 0 0-0.8 10 ^3/uL Basophils # (Auto) 0 0-0.2 10 ^3/uL Nucleated Red Blood Cells 0.1 % Platelet Estimate Decreased Anisocytosis (manual) Slight Sodium Level 143 136-145 mmol/L Potassium Level 4.2 3.5-5.1 mmol/L Chloride Level 111 H 98-107 mmol/L Carbon Dioxide Level 23 20-31 mmol/L Anion Gap 9 5-15 Blood Urea Nitrogen 20 9-23 mg/dL Creatinine 1.25 H 0.550-1.02 mg/dL Glomerular Filtration Rate Calc 43 >90 mL/min BUN/Creatinine Ratio 16.0 10.0-20.0 Serum Glucose 117 H 74-106 mg/dL Lactic Acid Level 0.9 0.4-2.0 mmol/L Calcium Level 9.6 8.7-10.4 mg/dL Total Bilirubin 0.5 0.2-1.0 mg/dL Aspartate Amino Transferase (AST) 15 13-40 U/L Alanine Aminotransferase (ALT) 18 7-40 U/L Alkaline Phosphatase 114 46-116 U/L Total Protein 6.9 5.7-8.2 g/dL Albumin 4.3 3.2-4.8 g/dL Lipase 41 12-53 U/L Current Medications Medications (Trade) Dose Ordered Sig/Polly Route Start Time Stop Time Status Last Admin Acetaminophen (Tylenol Solution Oral) 975 mg ONCE ONCE PO 05/02/25 19:45 05/02/25 19:46 DC 05/02/25 19:54 Sodium Chloride 1,000 ml @ 1,000 mls/hr Q1H ONCE IV 05/02/25 19:45 05/02/25 20:44 DC 05/02/25 19:52 PROCEDURE(s): ABPL - CT AB PEL WO CON-NO ORAL OR IV REASON: abd pain ORDER NUMBER(s): [id number], ACCESSION NUMBER(s): [id number] Exam: CT CT AB PEL WO CON-NO ORAL OR IV History: abd pain Comparison Study: None TECHNIQUE: Multidetector CT of the abdomen was performed from lung bases to pubic symphysis. Imaging was performed without IV contrast. Axial, coronal and sagittal multiplanar reformats were obtained from the axial data set by the technologist. Radiation Dose Information: CT Dose: CTDI volume is 10.44 mGy. Dose-length product is 537.15 mGy*cm FINDINGS: Evaluation of solid organs is limited due to lack of intravenous contrast use. Findings: Lung Bases: No acute or significant lung base finding. Normal heart size. No pleural or pericardial effusion. Liver: The liver is normal in size. No focal lesions. Gallbladder and Biliary Tree: Gallbladder has been surgically removed. Spleen: Unremarkable Pancreas: The pancreas is grossly normal in appearance. Adrenal Glands: Unremarkable Kidneys: Kidneys are grossly normal without calculi or hydronephrosis. Bladder: Grossly unremarkable for degree of distention. Bowel: The stomach is grossly normal in appearance. Small bowel and colon are normal in caliber and distribution. Diverticulosis The appendix is not visualized; however, no secondary findings of acute appendicitis identified. Ascites: Absent Lymphadenopathy: No mesenteric, retroperitoneal or periportal lymphadenopathy. Abdominal Wall and Mesentery: Unremarkable. Vasculature: The visualized abdominal aorta is normal in size and caliber. Evaluation of abdominal and pelvic vessels is limited due to lack of intravenous contrast. Pelvic Organs: Unremarkable Musculoskeletal: No aggressive focal bony lesions, acute fractures or dislocation. Soft tissues: Unremarkable IMPRESSION: 1. No findings of bowel obstruction. Stool throughout the colon. 2. Sigmoid diverticulosis without free air or free fluid. 3. Degenerative disc changes throughout the lumbar spine. Radiation optimization: All CT scans at this facility use at least one of these dose optimization techniques: automated exposure control mA and/or kV adjustment per patient size (includes targeted exams where dose is matched to clinical indication) or iterative reconstruction. X-Ray, Labs, Meds, VS Comment 84-year-old female with a history of peptic ulcer disease, pancreatitis and possible stage IV cancer complaining of abdominal pain and vomiting Vitals remarkable for BP 122/50 Exam remarkable for epigastric tenderness to palpation Rhythm strip independently interpreted by me: Sinus rhythm, rate 63, no ectopy. CT abdomen and pelvis: IMPRESSION: 1. No findings of bowel obstruction. Stool throughout the colon. 2. Sigmoid diverticulosis without free air or free fluid. 3. Degenerative disc changes throughout the lumbar spine. CBC, CMP, lipase, troponin and lactate unremarkable Patient treated with the following in the ED: 1 L 0.9 normal saline IV bolus, Zofran 4 mg IV, Protonix 40 mg IV, Tylenol 975 mg p.o. On re-evaluation, patient states pain is tolerable. Vitals were stable. Although preliminary workup is unremarkable, patient's daughter who was at bedside states that in 2022 patient was seen here and transferred to [place] where she was told she had stage IV cancer with multiple liver lesions. Patient is still awaiting oncologic evaluation. Patient's daughter states she would prefer to have the patient observed overnight for pain and emesis control, and possible GI and oncologic evaluation as an inpatient. Plan is to admit the patient for pain and emesis control, Oncology and/or GI evaluation. Time of 1ST Reevaluation: 19:43 Reevaluation 1ST: Unchanged Patient Education/Counseling: Diagnosis, Treatment, Prognosis Family Education/Counseling: Diagnosis, Treatment, Prognosis Sepsis Sepsis Reasesment Focused Exam Orders: Laboratory Tests 05/02/25 17:52: Lactic Acid Level 0.9 Departure 1 Departure Time of Disposition: 20:21 Impression: Primary Impression: Upper abdominal pain Additional Impression: Nausea and vomiting Qualified Codes: R11.2 - Nausea with vomiting, unspecified Disposition: ADMITTED INPATIENT Admit to: Med Surg Condition: Guarded Critical Care Note Critical Care Time?: No Stability Stability form required: No I personally scribed for DG OLIVO MD ([facility]) on 05/02/25 at 17:31. Electronically submitted by Johanna Walters ([facility]). I personally scribed for DG [facility]IVO MD ([facility] on 05/02/25 at 19:50. Electronically submitted by Johanna Walters ([facility]). DG OLIVO MD May 02, 2025 17:31
[2025-05-02 18:13] LABS: Basophils # (auto) 0 10 ^3/uL (0-0.2); Basophils % (auto) 0.5 % (0.0-2.0); Eosinophils # (auto) 0 10 ^3/uL (0-0.8); Eosinophils % (auto) 0.5 % (0.0-7.0); Hematocrit 35.4 % (36.0-46.0); Hemoglobin 11.9 g/dL (12.2-16.2); Lymphocytes # (auto) 1.1 10 ^3/uL (0.4-5.4); Lymphocytes % (auto) 22.4 % (10.0-50.0); Mean Corpuscular Hemoglobin 29.2 pg (28.0-32.0); Mean Corpuscular Hgb Conc. 33.7 g/dL (32.0-36.0); Mean Corpuscular Volume 86.8 fL (80.0-100.0); Monocytes # (auto) 0.4 10 ^3/uL (0-1.3); Monocytes % (auto) 8.6 % (0.0-12.0); Neutrophils # (auto) 3.3 10 ^3/uL (1.6-8.6); Nucleated Red Blood Cells % 0.1 %; Platelet Count (auto) 73 10^3/uL (140-450); Red Blood Cells 4.08 10^6/uL (4.0-5.20); Red Cell Distribution Width 14.4 % (11.8-14.3); White Blood Cell 4.8 10^3/uL (4.4-10.8)
[2025-05-02 18:23] LABS: Alanine Aminotransferase 18 U/L (7-40); Alkaline Phosphatase 114 U/L (46-116); Anion Gap 9 (5-15); Calcium 9.6 mg/dL (8.7-10.4); Carbon Dioxide 23 mmol/L (20-31); Potassium 4.2 mmol/L (3.5-5.1); Sodium 143 mmol/L (136-145); Total Protein 6.9 g/dL (5.7-8.2)
[2025-05-02 18:24] LABS: Albumin 4.3 g/dL (3.2-4.8); Aspartate Aminotransferase 15 U/L (13-40); Bilirubin, Total 0.5 mg/dL (0.2-1.0); Blood Urea Nitrogen 20 mg/dL (9-23)
[2025-05-02 18:25] LABS: Chloride 111 mmol/L (98-107); Glucose 117 mg/dL (74-106)
[2025-05-02 18:36] LABS: Lipase 41 U/L (12-53)
[2025-05-02 19:04] LABS: Anisocytosis Slight; Platelet Estimate Decreased
--- NOTE | 2025-05-02 19:25 | ECG ---
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
--- NOTE | 2025-05-02 19:45 | DVH ---
Exam: CT CT AB PEL WO CON-NO ORAL OR IV History: abd pain Comparison Study: None TECHNIQUE: Multidetector CT of the abdomen was performed from lung bases to pubic symphysis. Imaging was performed without IV contrast. Axial, coronal and sagittal multiplanar reformats were obtained fr om the axial data set by the technologist. Radiation Dose Information: CT Dose: CTDI volume is 10.44 mGy. Dose-length product is 537.15 mGy*cm FINDINGS: Evaluation of solid organs is limited due to lack of intravenous contrast use. Findings: Lung Bases: No acute or significant lung base finding. Normal heart size. No pleural or pericardial effusion. Liver: The liver is normal in size. No focal lesions. Gallbladder and Biliary Tree: Gallbladder has been surgically removed. Spleen: Unremarkable Pancreas: The pancreas is grossly normal in appearance. Adrenal Glands: Unremarkable Kidneys: Kidneys are grossly normal without calculi or hydronephrosis. Bladder: Grossly unremarkable for degree of distention. Bowel: The stomach is grossly normal in appearance. Small bowel and colon are normal in caliber and d istribution. Diverticulosis The appendix is not visualized; however, no secondary findings of acute a ppendicitis identified. Ascites: Absent Lymphadenopathy: No mesenteric, retroperitoneal or periportal lymphadenopathy. Abdominal Wall and Mesentery: Unremarkable. Vasculature: The visualized abdominal aorta is normal in size and caliber. Evaluation of abdominal a nd pelvic vessels is limited due to lack of intravenous contrast. Pelvic Organs: Unremarkable Musculoskeletal: No aggressive focal bony lesions, acute fractures or dislocation. Soft tissues: Unremarkable IMPRESSION: 1. No findings of bowel obstruction. Stool throughout the colon. 2. Sigmoid diverticulosis without free air or free fluid. 3. Degenerative disc changes throughout the lumbar spine. Radiation optimization: All CT scans at this facility use at least one of these dose optimization te chniques: automated exposure control mA and/or kV adjustment per patient size (includes targeted exa ms where dose is matched to clinical indication) or iterative reconstruction.
[2025-05-02] MEDS: SODIUM CHLORIDE 0.9% 1,000 ML IV ONE (19:52)
[2025-05-02] MEDS: ACETAMINOPHEN 650 mg PER 20.3 mL UD PO ONE (19:54)
[2025-05-02] MEDS: MORPHINE SULFATE INJ 2 MG/ml SYRG IV ONE (19:55)
[2025-05-02] MEDS: ONDANSETRON HCL 4 MG/2 ML VIAL IV ONE (19:55)
[2025-05-02] MEDS: TEMAZEPAM 15 MG CAP PO ONE (20:55)
[2025-05-02] MEDS: GABAPENTIN 300 MG CAP PO ONE (20:55)
[2025-05-02] MEDS ORDERED: MORPHINE SULFATE 4 MG/ML SYR/VIAL IV PRN (21:00)
[2025-05-02] MEDS ORDERED: ONDANSETRON HCL 4 MG/2 ML VIAL IV PRN (21:00)
[2025-05-02] MEDS: DONEPEZIL HYDROCHLORIDE 5 MG TAB PO SCH (21:41)
[2025-05-02] MEDS: ATORVASTATIN 20 MG TAB PO SCH (21:41)
[2025-05-02] MEDS: CARVEDILOL 12.5 MG TAB PO SCH (21:43)
[2025-05-02] MEDS: CREON 12000 UNIT PO SCH (22:00)
[2025-05-02 23:59] VITALS: PULSE 60; RESP 16; O2SAT 98
[2025-05-03] VITALS (9 sets, daily range): BP systolic 129–170; BP diastolic 55–88; PULSE 57–67; RESP 14–18; TEMP 96–98.2; O2SAT 97–99
--- NOTE | 2025-05-03 02:50 | DVHHP2 ---
History of Present Illness Reason for Visit: Abdominal pain History of Present Illness 84-year-old female presents for evaluation of abdominal pain. Patient reports a three day history of intermittent sharp epigastric abdominal pain that is nonradiating. Denies nausea or vomiting. No diarrhea or constipation. No other acute symptoms. Past Medical History Depression, chronic kidney disease, diabetes mellitus, dyslipidemia, hypert ension Past Surgical History Hysterectomy, cholecystectomy, tonsillectomy Family History Noncontributory Smoke: No ALCOHOL: none Drugs: None Lives: with Family Review of Systems Review of Systems Review of systems are currently negative otherwise addressed in HPI. Allergies: Coded Allergies: NO KNOWN ALLERGIES (Verified , 08/26/15) Medications Current Medications Medications Dose Ordered Sig/Polly Route Start Time Stop Time Status Last Admin Dose Admin Pantoprazole Sodium 40 mg BID@0600,1700 PO 05/03/25 06:00 Atorvastatin Calcium 40 mg HS PO 05/02/25 22:00 05/02/25 21:41 40 MG Carvedilol 12.5 mg Q12HR PO 05/02/25 22:00 Patient Own Medication 12,000 units TID PO 05/02/25 22:00 UNV Donepezil HCl 5 mg HS PO 05/02/25 22:00 05/02/25 21:41 5 MG Acetaminophen/ Hydrocodone Bitart 1 tab Q4HP PRN PO 05/02/25 21:00 Ondansetron HCl 4 mg Q4HP PRN IV 05/02/25 21:00 Acetaminophen 650 mg Q6HP PRN PO 05/02/25 21:00 Morphine Sulfate 2 mg Q6HPRN PRN IV 05/02/25 21:00 Exam Vital Signs Vital Signs Date Time Temp Pulse Resp B/P (MAP) Pulse Ox O2 Delivery O2 Flow Rate FiO2 05/03/25 01:00 97.5 60 16 129/72 (91) 98 97.5 05/02/25 23:59 Room Air* 0 21 Exam Gen: 84-year-old female in mild distress. Skin: Warm, dry, normal color and texture, no rash. HEENT: Normocephalic atraumatic, mucous membranes moist and pink. Neck: Cervical and supraclavicular nodes normal without enlargement, trachea is midline, thyroid gland is normal without masses. Pulmonary: Clear to auscultation and percussion bilaterally. Cardiac: Regular rate and rhythm. No murmur Abdomen: Soft, nontender, nondistended, bowel sounds present all 4 quadrants, no guarding, no rigidity, no organomegaly. Extremities: No cyanosis, clubbing, no edema Neuro: Cranial nerves II through XII grossly intact, normal affect and speech, no focal motor deficits. Labs/Xrays ORDERING PHYSICIAN: DG OLIVO MD PROCEDURE(s): ABPL - CT AB PEL WO CON-NO ORAL OR IV REASON: abd pain ORDER NUMBER(s): [id number], ACCESSION NUMBER(s): [id number] Exam: CT CT AB PEL WO CON-NO ORAL OR IV History: abd pain Comparison Study: None TECHNIQUE: Multidetector CT of the abdomen was performed from lung bases to pubic symphysis. Imaging was performed without IV contrast. Axial, coronal and sagittal multiplanar reformats were obtained from the axial data set by the technologist. Radiation Dose Information: CT Dose: CTDI volume is 10.44 mGy. Dose-length product is 537.15 mGy*cm FINDINGS: Evaluation of solid organs is limited due to lack of intravenous contrast use. Findings: Lung Bases: No acute or significant lung base finding. Normal heart size. No pleural or pericardial effusion. Liver: The liver is normal in size. No focal lesions. Gallbladder and Biliary Tree: Gallbladder has been surgically removed. Spleen: Unremarkable Pancreas: The pancreas is grossly normal in appearance. Adrenal Glands: Unremarkable Kidneys: Kidneys are grossly normal without calculi or hydronephrosis. Bladder: Grossly unremarkable for degree of distention. Bowel: The stomach is grossly normal in appearance. Small bowel and colon are normal in caliber and distribution. Diverticulosis The appendix is not visualized; however, no secondary findings of acute appendicitis identified. Ascites: Absent Lymphadenopathy: No mesenteric, retroperitoneal or periportal lymphadenopathy. Abdominal Wall and Mesentery: Unremarkable. Vasculature: The visualized abdominal aorta is normal in size and caliber. Evaluation of abdominal and pelvic vessels is limited due to lack of intravenous contrast. Pelvic Organs: Unremarkable Musculoskeletal: No aggressive focal bony lesions, acute fractures or dislocation. Soft tissues: Unremarkable IMPRESSION: 1. No findings of bowel obstruction. Stool throughout the colon. 2. Sigmoid diverticulosis without free air or free fluid. 3. Degenerative disc changes throughout the lumbar spine. Radiation optimization: All CT scans at this facility use at least one of these dose optimization techniques: automated exposure control mA and/or kV adjustment per patient size (includes targeted exams where dose is matched to clinical indication) or iterative reconstruction. Labs Test 05/03/25 00:22 05/02/25 17:52 Range/Units Troponin I High Sensitivity 7 </=34 ng/L White Blood Count 4.8 4.4-10.8 10^3/uL Red Blood Count 4.08 4.0-5.20 10^6/uL Hemoglobin 11.9 L 12.2-16.2 g/dL Hematocrit 35.4 L 36.0-46.0 % Mean Corpuscular Volume 86.8 80.0-100.0 fL Mean Corpuscular Hemoglobin 29.2 28.0-32.0 pg Mean Corpuscular Hemoglobin Concent 33.7 32.0-36.0 g/dL Red Cell Distribution Width 14.4 H 11.8-14.3 % Platelet Count 73 L 140-450 10^3/uL Mean Platelet Volume 10.5 6.9-10.8 fL Neutrophils (%) (Auto) 68.0 37.0-80.0 % Lymphocytes (%) (Auto) 22.4 10.0-50.0 % Monocytes (%) (Auto) 8.6 0.0-12.0 % Eosinophils (%) (Auto) 0.5 0.0-7.0 % Basophils (%) (Auto) 0.5 0.0-2.0 % Neutrophils # (Auto) 3.3 1.6-8.6 10 ^3/uL Lymphocytes # (Auto) 1.1 0.4-5.4 10 ^3/uL Monocytes # (Auto) 0.4 0-1.3 10 ^3/uL Eosinophils # (Auto) 0 0-0.8 10 ^3/uL Basophils # (Auto) 0 0-0.2 10 ^3/uL Nucleated Red Blood Cells 0.1 % Platelet Estimate Decreased Anisocytosis (manual) Slight Sodium Level 143 136-145 mmol/L Potassium Level 4.2 3.5-5.1 mmol/L Chloride Level 111 H 98-107 mmol/L Carbon Dioxide Level 23 20-31 mmol/L Anion Gap 9 5-15 Blood Urea Nitrogen 20 9-23 mg/dL Creatinine 1.25 H 0.550-1.02 mg/dL Glomerular Filtration Rate Calc 43 >90 mL/min BUN/Creatinine Ratio 16.0 10.0-20.0 Serum Glucose 117 H 74-106 mg/dL Lactic Acid Level 0.9 0.4-2.0 mmol/L Calcium Level 9.6 8.7-10.4 mg/dL Total Bilirubin 0.5 0.2-1.0 mg/dL Aspartate Amino Transferase (AST) 15 13-40 U/L Alanine Aminotransferase (ALT) 18 7-40 U/L Alkaline Phosphatase 114 46-116 U/L Total Protein 6.9 5.7-8.2 g/dL Albumin 4.3 3.2-4.8 g/dL Lipase 41 12-53 U/L Assessment/Plan Assessment/Plan Assessment Acute abdominal pain Hypertension Plan Admit the patient to [facility] to the hospitalist GI consult Clear liquid diet Pain management Resume home medications Continue treatment per orders. Plan discussed with: Patient My Orders Orders - GORDON LEONG Procedure Category Date Status Time Admit ADMIT 05/02/25 Transmitted 20:22 * Gi [facility] Ethics Manager CONS 05/02/25 Transmitted 20:46 Pantoprazole Tablet PHA 05/03/25 In Process (Protonix Tablet) 06:00 Atorvastatin (Lipitor) PHA 05/02/25 In Process 22:00 Carvedilol Tablet PHA 05/02/25 In Process (Coreg Tablet) 22:00 (Nf) Creon PHA 05/02/25 Pending 22:00 Donepezil Tablet PHA 05/02/25 In Process (Aricept Tablet) 22:00 Basic Metabolic Panel LAB 05/03/25 Logged 04:00 Hydrocodone-Acet PHA 05/02/25 In Process 5/325mg Tab ([place] 21:00 Ondansetron Hcl PHA 05/02/25 In Process (Zofran) 21:00 Complete Blood Count LAB 05/03/25 Logged 04:00 Condition: Stable SOMMER 05/02/25 In Process 20:46 Acetaminophen Tablet PHA 05/02/25 In Process (Tylenol Tablet) 21:00 Clear Liq Diet DIET 05/03/25 Transmitted Breakfast Bedrest With Bathroom SOMMER 05/02/25 In Process Privileg 20:46 Morphine Sulfate PHA 05/02/25 In Process Injection 21:00 Date of Service: May 02, 2025 Billing Provider: GORDON LEONG Common Visit Codes: [id number] INP/OBS CARE (MOD) GORDON LEONG May 03, 2025 02:50
[2025-05-03] MEDS: PANTOPRAZOLE 40 MG TAB PO SCH (06:11)
[2025-05-03 07:13] LABS: Basophils # (auto) 0 10 ^3/uL (0-0.2); Basophils % (auto) 0.7 % (0.0-2.0); Eosinophils # (auto) 0 10 ^3/uL (0-0.8); Eosinophils % (auto) 0.3 % (0.0-7.0); Hematocrit 35.9 % (36.0-46.0); Hemoglobin 11.8 g/dL (12.2-16.2); Lymphocytes # (auto) 0.8 10 ^3/uL (0.4-5.4); Lymphocytes % (auto) 20.3 % (10.0-50.0); Mean Corpuscular Hgb Conc. 32.9 g/dL (32.0-36.0); Mean Corpuscular Volume 88.2 fL (80.0-100.0); Monocytes # (auto) 0.3 10 ^3/uL (0-1.3); Monocytes % (auto) 7.3 % (0.0-12.0); Neutrophils # (auto) 2.9 10 ^3/uL (1.6-8.6); Neutrophils % (auto) 71.4 % (37.0-80.0); Nucleated Red Blood Cells % 0.1 %; Red Blood Cells 4.07 10^6/uL (4.0-5.20); Red Cell Distribution Width 14.8 % (11.8-14.3); White Blood Cell 4.1 10^3/uL (4.4-10.8)
[2025-05-03 07:20] LABS: Platelet Count (auto) 54 10^3/uL (140-450)
[2025-05-03 07:28] LABS: Calcium 9.7 mg/dL (8.7-10.4)
[2025-05-03 07:29] LABS: Anion Gap 11 (5-15); Carbon Dioxide 22 mmol/L (20-31)
[2025-05-03 07:33] LABS: Chloride 113 mmol/L (98-107); Sodium 146 mmol/L (136-145)
[2025-05-03 07:34] LABS: BUN/Creatinine Ratio 13.8 (10.0-20.0); Blood Urea Nitrogen 17 mg/dL (9-23); Glucose 99 mg/dL (74-106)
--- NOTE | 2025-05-03 12:12 | DVHPN2 ---
Reviewed: Care Plan, H&P, Labs, Medications, Previous Orders, Radiology Changes from previous H/P or p: No Changes Objective Vitals Vital Signs Date Time Temp Pulse Resp B/P (MAP) Pulse Ox O2 Delivery O2 Flow Rate FiO2 05/03/25 09:42 92 152/58 05/03/25 09:00 98.0 16 98 98.0 05/03/25 07:30 Room Air* 0 21 Intake/Output Intake and Output 05/03/25 07:00 Intake Total 1000 ml Balance 1000 ml Intake Oral 0 ml IV Total 1000 ml Medications Current Medications Medications Dose Ordered Sig/Polly Route Start Time Stop Time Status Last Admin Dose Admin Pantoprazole Sodium 40 mg BID@0600,1700 PO 05/03/25 06:00 05/03/25 06:11 40 MG Atorvastatin Calcium 40 mg HS PO 05/02/25 22:00 05/02/25 21:41 40 MG Carvedilol 12.5 mg Q12HR PO 05/02/25 22:00 05/03/25 09:42 12.5 MG Patient Own Medication 12,000 units TID PO 05/02/25 22:00 Donepezil HCl 5 mg HS PO 05/02/25 22:00 05/02/25 21:41 5 MG Acetaminophen/ Hydrocodone Bitart 1 tab Q4HP PRN PO 05/02/25 21:00 Ondansetron HCl 4 mg Q4HP PRN IV 05/02/25 21:00 Acetaminophen 650 mg Q6HP PRN PO 05/02/25 21:00 Morphine Sulfate 2 mg Q6HPRN PRN IV 05/02/25 21:00 Laboratory Results Laboratory Tests 05/03/25 06:03 Chemistry Test 05/02/25 17:52 05/03/25 06:03 Albumin 4.3 g/dL (3.2-4.8) Calcium Level 9.6 mg/dL (8.7-10.4) 9.7 mg/dL (8.7-10.4) Total Protein 6.9 g/dL (5.7-8.2) Lipid panel Test 05/02/25 17:52 Lipase 41 U/L (12-53) LFT Test 05/02/25 17:52 Alanine Aminotransferase (ALT) 18 U/L (7-40) Alkaline Phosphatase 114 U/L (46-116) Aspartate Amino Transferase (AST) 15 U/L (13-40) Total Bilirubin 0.5 mg/dL (0.2-1.0) Labs and/or images reviewed: Labs reviewed by me, Image(s) reviewed by me Assessment/Plan Assessment/Plan Acute Abdominal pain: All labs normal, CT abdomen pelvis without contrast shows diverticulosis, no diverticulitis: Pantoprazole, GI consult for Dr. Chu Collado, getting EGD tomorrow History of gastric ulcer by EGD two years ago by Dr. Jonas Hypertension Diabetes Hypercholesterolemia Depression Chronic kidney disease Plan discussed with: Patient Date of Service: May 03, 2025 Billing Provider: KYLE LOU MD Common Visit Codes: [id number] INP/OBS CARE(HIGH) KYLE LOU MD May 03, 2025 12:12
--- NOTE | 2025-05-03 13:01 | DVHINCON2 ---
GI Consult Consult Note GI consult note Date of Consultation: 05/03/2025 Chief Complaint: Abdominal pain Referring Physician: Sridhar SCHILLING H&P: 84-year-old female with past medical history of dementia, PUD, GERD, pancreatitis and TIA presents to ER with complains of upper abdominal pain with nausea past four days. No hematemesis. Daughter at bedside confirming patient had similar episode two years ago and diagnosed with PUD and patient had to be flow now to [facility] for an abdominal surgery and critical embolization invasive procedure, and was told that it might be stage IV cancer but has not been seen by oncologist yet. No complains of melena or red blood in stool. Patient admits to 10 lb weight loss, in the last few months due to decreased appetite. Last EGD 04/21/[address] Jonas DATE OF SURGERY: 04/21/2023 GASTROENTEROLOGY OPERATIVE REPORT REFERRING PHYSICIAN: Dr. Mahesh Carter. PREOPERATIVE DIAGNOSIS: Gastrointestinal bleed. POSTOPERATIVE DIAGNOSES: * Penetrating posterior duodenal bulb ulcer with visible vessel and exposed coils from presumed prior attempted arterial embolization. * Extensive gastric residual of old blood in the gastric fundus and cardia. Past Medical History: Anxiety, CKF, Dementia, Depression, DM, GERD, High Lipids, HTN, PUD Daughter states patient was told she had stage IV cancer with liver lesions in 2022. This has not been confirmed. Past Surgical History: Cholecystectomy, Hysterectomy, Tonsillectomy Social History: NO smoking, drinking ETOH and use of illegal drugs. Family History: Noncontributory Review of Systems: Constitutional: no fever, chill, weight loss HEENT: no eye pain, no hearing loss, no oral lesion, no scleral icterus Heart: no chest pain, no chest pressure Lung: no cough, no dyspnea with exertion Abdomen: see HPI Physical exam: General: NAD, AAOX3 Chest: lung cifuentes clear to auscultation Heart: RRR, no murmur Abdomen: non-distended, no tenderness to palpation, +BS Labs: Labs Test 05/03/25 06:03 05/02/25 17:52 Range/Units White Blood Count 4.1 L 4.4-10.8 10^3/uL Red Blood Count 4.07 4.0-5.20 10^6/uL Hemoglobin 11.8 L 12.2-16.2 g/dL Hematocrit 35.9 L 36.0-46.0 % Mean Corpuscular Volume 88.2 80.0-100.0 fL Mean Corpuscular Hemoglobin 29.0 28.0-32.0 pg Mean Corpuscular Hemoglobin Concent 32.9 32.0-36.0 g/dL Red Cell Distribution Width 14.8 H 11.8-14.3 % Platelet Count 54 L 140-450 10^3/uL Mean Platelet Volume 10.7 6.9-10.8 fL Neutrophils (%) (Auto) 71.4 37.0-80.0 % Lymphocytes (%) (Auto) 20.3 10.0-50.0 % Monocytes (%) (Auto) 7.3 0.0-12.0 % Eosinophils (%) (Auto) 0.3 0.0-7.0 % Basophils (%) (Auto) 0.7 0.0-2.0 % Neutrophils # (Auto) 2.9 1.6-8.6 10 ^3/uL Lymphocytes # (Auto) 0.8 0.4-5.4 10 ^3/uL Monocytes # (Auto) 0.3 0-1.3 10 ^3/uL Eosinophils # (Auto) 0 0-0.8 10 ^3/uL Basophils # (Auto) 0 0-0.2 10 ^3/uL Nucleated Red Blood Cells 0.1 % Sodium Level 146 H 136-145 mmol/L Potassium Level 4.0 3.5-5.1 mmol/L Chloride Level 113 H 98-107 mmol/L Carbon Dioxide Level 22 20-31 mmol/L Anion Gap 11 5-15 Blood Urea Nitrogen 17 9-23 mg/dL Creatinine 1.23 H 0.550-1.02 mg/dL Glomerular Filtration Rate Calc 44 >90 mL/min BUN/Creatinine Ratio 13.8 10.0-20.0 Serum Glucose 99 74-106 mg/dL Calcium Level 9.7 8.7-10.4 mg/dL Troponin I High Sensitivity 8 </=34 ng/L Platelet Estimate Decreased Anisocytosis (manual) Slight Lactic Acid Level 0.9 0.4-2.0 mmol/L Total Bilirubin 0.5 0.2-1.0 mg/dL Aspartate Amino Transferase (AST) 15 13-40 U/L Alanine Aminotransferase (ALT) 18 7-40 U/L Alkaline Phosphatase 114 46-116 U/L Total Protein 6.9 5.7-8.2 g/dL Albumin 4.3 3.2-4.8 g/dL Lipase 41 12-53 U/L Imaging: CT abdomen pelvis IMPRESSION: 1. No findings of bowel obstruction. Stool throughout the colon. 2. Sigmoid diverticulosis without free air or free fluid. 3. Degenerative disc changes throughout the lumbar spine. Assessment: Abdominal pain History of PUD Constipation Plan: Discussed with Dr. Collado - Pt will be scheduled for an EGD tomorrow 05/04/2025. Pt was informed of the risks (bleeding, infection, perforation, reaction to sedation medications and cardiopulmonary arrest) and benefit and is agreeable to undergo the procedures. MiraLax, and Colace Monitor labs Discussed plan with patient, daughter at bedside, hospitalist Dr. Lou and RN Thank you for this consult Date of Service: May 03, 2025 Billing Provider: JIE LOU Common Visit Codes: CONSULT ONLY Consultation Codes: [id number] CONSULT <60MIN JIE LOU May 03, 2025 13:01
[2025-05-03 13:48] LABS: INR 1.01 (0.9-1.15); Prothrombin Time 10.7 sec (9.3-11.8)
[2025-05-03] MEDS: POLYETHYLENE GLYCOL 17 GM PWDR PO ONE (17:18)
[2025-05-03] MEDS: HYDROcodone-ACET 5/325MG TAB PO PRN (17:28)
[2025-05-03] MEDS: cloNIDine HCL 0.1 MG TAB PO ONE (22:23)
[2025-05-03] MEDS: TEMAZEPAM 15 MG CAP PO ONE (22:24)
--- NOTE | 2025-05-04 07:25 | DVH ---
EXAM: XR Chest, 1 View CLINICAL INDICATION: preop TECHNIQUE: Frontal view of the chest. COMPARISON: XY CHEST PORTABLE on DOS: 04/21/23 FINDINGS: LUNGS AND PLEURAL SPACES: See below. HEART: Cardiomegaly with mild congestion. MEDIASTINUM: Unremarkable. Normal mediastinal contour. BONES/JOINTS: Unremarkable. No acute fracture. OTHER FINDINGS: . IMPRESSION: Cardiomegaly with mild congestion.
[2025-05-04 08:18] LABS: Urine Bacteria None Seen /hpf (None Seen)
[2025-05-04 08:26] LABS: Urine Blood Negative /uL (Negative); Urine Clarity Clear (Clear); Urine Color Light-Yellow (Yellow); Urine Protein, UAD Negative (Negative); Urine Specific Gravity 1.011 (1.001-1.035); Urine Squamous Epithelial Cell FEW /hpf (<5); Urine Urobilinogen Normal (Negative); Urine WBC 27 /HPF (0-5); Urine pH 6.5 (5.0-9.0)
[2025-05-04 09:00] VITALS: BP 100/58; PULSE 54; RESP 17; TEMP 98.1; O2SAT 98
--- NOTE | 2025-05-04 10:44 | DVHPN2 ---
Reviewed: Care Plan, H&P, Labs, Medications, Previous Orders, Radiology Changes from previous H/P or p: No Changes Objective Vitals Vital Signs Date Time Temp Pulse Resp B/P (MAP) Pulse Ox O2 Delivery O2 Flow Rate FiO2 05/04/25 09:50 54 100/58 05/04/25 08:00 Room Air* 0 21 05/03/25 21:00 98.0 18 98 98.0 Intake/Output Intake and Output 05/04/25 07:00 Intake Total 250 ml Balance 250 ml Intake Oral 250 ml Medications Current Medications Medications Dose Ordered Sig/Polly Route Start Time Stop Time Status Last Admin Dose Admin Pantoprazole Sodium 40 mg BID@0600,1700 PO 05/03/25 06:00 05/04/25 06:37 40 MG Atorvastatin Calcium 40 mg HS PO 05/02/25 22:00 05/03/25 22:22 40 MG Carvedilol 12.5 mg Q12HR PO 05/02/25 22:00 05/03/25 22:24 12.5 MG Patient Own Medication 12,000 units TID PO 05/02/25 22:00 Donepezil HCl 5 mg HS PO 05/02/25 22:00 05/03/25 22:23 5 MG Acetaminophen/ Hydrocodone Bitart 1 tab Q4HP PRN PO 05/02/25 21:00 05/03/25 17:28 1 TAB Ondansetron HCl 4 mg Q4HP PRN IV 05/02/25 21:00 Acetaminophen 650 mg Q6HP PRN PO 05/02/25 21:00 Morphine Sulfate 2 mg Q6HPRN PRN IV 05/02/25 21:00 Laboratory Results Laboratory Tests 05/03/25 06:03 Coagulation Test 05/03/25 13:15 Prothrombin Time 10.7 sec (9.3-11.8) Prothrombin Time INR 1.01 (0.9-1.15) Urinalysis Test 05/04/25 08:10 Urine Color Light-yellow (Yellow) Urine Clarity Clear (Clear) Urine pH 6.5 (5.0-9.0) Urine Specific [place] 1.011 (1.001-1.035) Urine Protein Negative (Negative) Urine Ketones Negative (Negative) Urine Blood Negative /uL (Negative) Urine Nitrite Negative (Negative) Urine Bilirubin Negative (Negative) Urine Urobilinogen Normal mg/dL (Negative) Urine Leukocyte Esterase 2+ /uL (Negative) Urine RBC 1 /hpf (0 - 4) Urine Microscopic WBC 27 /HPF (0-5) H Urine Squamous Epithelial Cells Few /hpf (<5) Urine Bacteria None seen /hpf (None Seen) Urine Glucose Normal mg/dL (Normal) Microbiology Microbiology Date/Time Source Procedure Growth Status 05/02/25 18:01 Blood Blood Culture - Preliminary NO GROWTH AFTER 24 HOURS OF INCUBATION. Resulted Labs and/or images reviewed: Labs reviewed by me, Image(s) reviewed by me Assessment/Plan Assessment/Plan Acute Abdominal pain: All labs normal, CT abdomen pelvis without contrast shows diverticulosis, no diverticulitis: Pantoprazole, GI consult for Dr. Chu Collado, getting EGD today History of gastric ulcer by EGD two years ago by Dr. Jonas Hypertension Diabetes Hypercholesterolemia Depression Chronic kidney disease Plan discussed with: Patient My Orders Orders - KYLE LOU MD Procedure Category Date Status Time Chest Xray 1 View XY 05/04/25 Resulted 03:48 Date of Service: May 04, 2025 Billing Provider: KYLE LOU MD Common Visit Codes: [id number] INP/OBS CARE(HIGH) KYLE LOU MD May 04, 2025 10:44
[2025-05-04] MEDS: ACETAMINOPHEN 325 MG TAB PO PRN (10:46)
[2025-05-04 13:00] VITALS: BP 198/80; PULSE 49; RESP 17; TEMP 98.1; O2SAT 97
[2025-05-04] MEDS ORDERED: PROPOFOL 10 MG/ML 20 ML IV ONE (13:31)
[2025-05-04] MEDS ORDERED: LIDOCAINE 1% INJ PF 5ML AMP ONE (13:31)
[2025-05-04] MEDS ORDERED: SODIUM CHLORIDE LOCK 10 ML ONE (13:31)
[2025-05-04] MEDS ORDERED: fentaNYL CITRATE 100 MCG/2 ML VL ONE (13:31)
[2025-05-04] MEDS ORDERED: MIDAZOLAM HCL 2MG/2ML 2ml VIAL (1mg/ml) ONE (13:31)
[2025-05-04] MEDS ORDERED: KETAMINE 50mg/ML 1ml syringe ONE (13:31)
[2025-05-04 14:15] VITALS: PULSE 51; RESP 21; O2SAT 96
--- NOTE | 2025-05-04 14:17 | DVHOP2 ---
Operative Report DATE OF OPERATION: 05/04/25 PROCEDURE: Upper Endoscopy with biopsy. PREOPERATIVE INDICATION: The patient is a 84 -year-old female undergoing endoscopy for epigastric pain POSTOPERATIVE DIAGNOSES: 1. 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 Mild antral gastritis and a small benign gastric fundic polyps were seen and removed by cold biopsy forceps and antral gastric biopsies were obtained 3. 2 cm sliding-type hiatal hernia with minimal grade a erosive esophagitis otherwise normal examination up to the duodenal bulb with no fresh or old blood in the upper GI tract PROCEDURE PERFORMED BY: Gideon Collado GI NURSE: Lisa SCOPE: Olympus videoendoscope. ASA CLASS: 3. PREOPERATIVE MEDICATIONS: Dr. Gene Gold PROCEDURE IN DETAIL: After obtaining an informed consent, the patient was placed on left lateral decubitus position. The patient was then sedated with the above medications. A bite block was placed between her teeth. The endoscope was then passed through the oropharynx, into the esophagus, and through the stomach and pylorus up to the duodenal bulb and postbulbar area. Patient had pyloric channel duodenal deformity She had a large deep postbulbar duodenal ulcer with a couple of red dots but no visible vessel no active bleeding. Duodenal bulb biopsies were obtained. he endoscope was then withdrawn into the stomach. Patient had mild antral gastritis Gastric biopsies were obtained. On retroflexion and straight on view the fundus cardia and angularis were normal. There was a 2-3 mm benign-appearing gastric polyp that was seen and removed by cold biopsy forceps. The endoscope was then withdrawn into the esophagus Patient had a 2 cm sliding-type hiatal hernia with slightly irregular squamocolumnar junction minimal grade a erosive esophagitis The remaining distal and proximal esophagus and oropharynx were unremarkable. There was no fresh or old blood in the upper GI tract The patient tolerated the procedure well without difficulty. COMPLICATIONS : None SPECIMENS: Gastric biopsies Gastric polyp Duodenal biopsy DISPOSITION: Transfer back to the floor Stable PLAN: 1. Await for biopsy result 2. Will place pt on Protonix 80 mg IV q.12 hours 3. Carafate suspension 1 g p.o. 4 times a day 4. DC aspirin NSAIDs smoking alcohol 5. Trial of clear liquid diet advance to full liquid 6. Monitor labs and transfuse 1 unit PRBC and one pack of platelets if labs trend downwards GIDEON COLLADO MD May 04, 2025 14:17
[2025-05-04 15:20] LABS: Basophils # (auto) 0 10 ^3/uL (0-0.2); Basophils % (auto) 0.4 % (0.0-2.0); Eosinophils # (auto) 0 10 ^3/uL (0-0.8); Eosinophils % (auto) 0.6 % (0.0-7.0); Hematocrit 32.7 % (36.0-46.0); Lymphocytes # (auto) 0.6 10 ^3/uL (0.4-5.4); Lymphocytes % (auto) 25.8 % (10.0-50.0); Mean Corpuscular Hemoglobin 29.1 pg (28.0-32.0); Mean Corpuscular Hgb Conc. 33.5 g/dL (32.0-36.0); Mean Corpuscular Volume 86.6 fL (80.0-100.0); Monocytes # (auto) 0.2 10 ^3/uL (0-1.3); Monocytes % (auto) 7.8 % (0.0-12.0); Neutrophils # (auto) 1.6 10 ^3/uL (1.6-8.6); Neutrophils % (auto) 65.4 % (37.0-80.0); Nucleated Red Blood Cells % 0.1 %; Platelet Count (auto) 47 10^3/uL (140-450); Red Blood Cells 3.77 10^6/uL (4.0-5.20); Red Cell Distribution Width 14.3 % (11.8-14.3); White Blood Cell 2.5 10^3/uL (4.4-10.8)
[2025-05-04] MEDS: SUCRALFATE 1 GM/10 ML ORAL SUSP PO SCH (16:09)
[2025-05-04] MEDS: PANTOPRAZOLE 40 MG TAB PO SCH (16:09)
[2025-05-04 17:00] VITALS: BP 156/54; PULSE 53; RESP 16; TEMP 98.1; O2SAT 98
[2025-05-04 20:00] VITALS: PULSE 56; RESP 17; O2SAT 100
[2025-05-04 21:00] VITALS: BP 154/80; PULSE 56; RESP 17; TEMP 97.4; O2SAT 100
[2025-05-05] MEDS: TEMAZEPAM 15 MG CAP PO ONE (00:39)
[2025-05-05 01:00] VITALS: BP 155/60; PULSE 60; RESP 20; TEMP 97.3; O2SAT 97
[2025-05-05 05:00] VITALS: BP 151/62; PULSE 79; RESP 17; TEMP 98; O2SAT 92
[2025-05-05 06:25] LABS: Anion Gap 10 (5-15); Carbon Dioxide 23 mmol/L (20-31); Potassium 4.4 mmol/L (3.5-5.1); Sodium 142 mmol/L (136-145)
[2025-05-05 06:28] LABS: Chloride 109 mmol/L (98-107)
[2025-05-05 06:31] LABS: Glucose 108 mg/dL (74-106)
[2025-05-05 06:32] LABS: BUN/Creatinine Ratio 9.2 (10.0-20.0); Blood Urea Nitrogen 9 mg/dL (9-23)
[2025-05-05 06:54] LABS: Basophils # (auto) 0 10 ^3/uL (0-0.2); Basophils % (auto) 0.5 % (0.0-2.0); Eosinophils # (auto) 0.1 10 ^3/uL (0-0.8); Eosinophils % (auto) 0.8 % (0.0-7.0); Hematocrit 35.5 % (36.0-46.0); Hemoglobin 11.8 g/dL (12.2-16.2); Lymphocytes # (auto) 1.6 10 ^3/uL (0.4-5.4); Lymphocytes % (auto) 24.3 % (10.0-50.0); Mean Corpuscular Hemoglobin 29.1 pg (28.0-32.0); Mean Corpuscular Hgb Conc. 33.3 g/dL (32.0-36.0); Mean Corpuscular Volume 87.5 fL (80.0-100.0); Monocytes # (auto) 0.5 10 ^3/uL (0-1.3); Monocytes % (auto) 7.2 % (0.0-12.0); Neutrophils # (auto) 4.3 10 ^3/uL (1.6-8.6); Neutrophils % (auto) 67.2 % (37.0-80.0); Nucleated Red Blood Cells % 0.2 %; Platelet Count (auto) 87 10^3/uL (140-450); Red Blood Cells 4.06 10^6/uL (4.0-5.20); Red Cell Distribution Width 14.2 % (11.8-14.3); White Blood Cell 6.4 10^3/uL (4.4-10.8)
[2025-05-05 08:48] VITALS: BP 164/66; PULSE 58; RESP 18; TEMP 98; O2SAT 98
--- NOTE | 2025-05-05 11:51 | DVHPN2 ---
Reviewed: Care Plan, H&P, Labs, Medications, Previous Orders, Radiology Changes from previous H/P or p: No Changes Objective Vitals Vital Signs Date Time Temp Pulse Resp B/P (MAP) Pulse Ox O2 Delivery O2 Flow Rate FiO2 05/05/25 09:39 60 164/66 05/05/25 08:48 98.0 18 98 98.0 05/05/25 08:44 Room Air* 0 21 Intake/Output Intake and Output 05/05/25 07:00 Intake Total 1320 ml Balance 1320 ml Intake Oral 1220 ml IV Total 100 ml # Voids 6 Medications Current Medications Medications Dose Ordered Sig/Polly Route Start Time Stop Time Status Last Admin Dose Admin Atorvastatin Calcium 40 mg HS PO 05/02/25 22:00 05/04/25 21:55 40 MG Carvedilol 12.5 mg Q12HR PO 05/02/25 22:00 05/05/25 09:39 12.5 MG Patient Own Medication 12,000 units TID PO 05/02/25 22:00 Donepezil HCl 5 mg HS PO 05/02/25 22:00 05/04/25 21:56 5 MG Acetaminophen/ Hydrocodone Bitart 1 tab Q4HP PRN PO 05/02/25 21:00 05/04/25 16:09 1 TAB Ondansetron HCl 4 mg Q4HP PRN IV 05/02/25 21:00 Acetaminophen 650 mg Q6HP PRN PO 05/02/25 21:00 05/04/25 10:46 650 MG Morphine Sulfate 2 mg Q6HPRN PRN IV 05/02/25 21:00 Pantoprazole Sodium 80 mg BID@0600,1700 PO 05/04/25 17:00 05/05/25 05:56 80 MG Sucralfate 1 gm QID@0600,1130,1700,2200 PO 05/04/25 17:00 05/05/25 11:12 1 GM Laboratory Results Laboratory Tests 05/05/25 05:42 Chemistry Test 05/05/25 05:42 Calcium Level 9.0 mg/dL (8.7-10.4) Urinalysis Test 05/04/25 08:10 Urine Color Light-yellow (Yellow) Urine Clarity Clear (Clear) Urine pH 6.5 (5.0-9.0) Urine Specific [place] 1.011 (1.001-1.035) Urine Protein Negative (Negative) Urine Ketones Negative (Negative) Urine Blood Negative /uL (Negative) Urine Nitrite Negative (Negative) Urine Bilirubin Negative (Negative) Urine Urobilinogen Normal mg/dL (Negative) Urine Leukocyte Esterase 2+ /uL (Negative) Urine RBC 1 /hpf (0 - 4) Urine Microscopic WBC 27 /HPF (0-5) H Urine Squamous Epithelial Cells Few /hpf (<5) Urine Bacteria None seen /hpf (None Seen) Urine Glucose Normal mg/dL (Normal) Microbiology Microbiology Date/Time Source Procedure Growth Status 05/04/25 08:10 Voided Urine Urine Culture - Preliminary Resulted 05/02/25 18:01 Blood Blood Culture - Preliminary NO GROWTH AFTER 48 HOURS OF INCUBATION. Resulted Labs and/or images reviewed: Labs reviewed by me, Image(s) reviewed by me Assessment/Plan Assessment/Plan Acute Abdominal pain: All labs normal, CT abdomen pelvis without contrast shows diverticulosis, no diverticulitis: Pantoprazole, GI consult for Dr. Chu Collado Large postbulbar duodenal ulcer mild gastritis and benign-appearing gastric polyps which were removed by EGD by Dr. Chu Collado on 05-04-25 History of gastric ulcer by EGD two years ago by Dr. Jonas Hpertension Diabetes Hypercholesterolemia Depression Chronic kidney disease Plan discussed with: Patient Date of Service: May 05, 2025 Billing Provider: KYLE LOU MD Common Visit Codes: [id number] INP/OBS CARE(HIGH) KYLE LOU MD May 05, 2025 11:51
[2025-05-05 13:00] VITALS: BP 142/57; PULSE 58; RESP 18; TEMP 97.5; O2SAT 95
[2025-05-05 17:00] VITALS: BP 164/66; PULSE 60; RESP 18; TEMP 97.8; O2SAT 96
[2025-05-05 21:00] VITALS: BP 159/83; PULSE 57; RESP 19; TEMP 98.9; O2SAT 98
[2025-05-06] VITALS (8 sets, daily range): BP systolic 142–173; BP diastolic 56–83; PULSE 57–62; RESP 16–19; TEMP 36.6–36.9; O2SAT 94–99
[2025-05-06 07:00] LABS: Basophils # (auto) 0 10 ^3/uL (0-0.2); Basophils % (auto) 0.3 % (0.0-2.0); Eosinophils # (auto) 0 10 ^3/uL (0-0.8); Eosinophils % (auto) 0.7 % (0.0-7.0); Hemoglobin 10.7 g/dL (12.2-16.2); Lymphocytes # (auto) 0.7 10 ^3/uL (0.4-5.4); Lymphocytes % (auto) 29.1 % (10.0-50.0); Mean Corpuscular Hemoglobin 28.9 pg (28.0-32.0); Mean Corpuscular Hgb Conc. 33.3 g/dL (32.0-36.0); Mean Corpuscular Volume 86.8 fL (80.0-100.0); Monocytes # (auto) 0.2 10 ^3/uL (0-1.3); Monocytes % (auto) 9.6 % (0.0-12.0); Neutrophils # (auto) 1.4 10 ^3/uL (1.6-8.6); Neutrophils % (auto) 60.3 % (37.0-80.0); Nucleated Red Blood Cells % 0.1 %; Platelet Count (auto) 56 10^3/uL (140-450); Red Blood Cells 3.69 10^6/uL (4.0-5.20); Red Cell Distribution Width 14.6 % (11.8-14.3); White Blood Cell 2.3 10^3/uL (4.4-10.8)
[2025-05-06] MEDS ORDERED: PANT40T PO (12:00)
[2025-05-06] MEDS ORDERED: SUCR1TAB31 PO (12:00)
--- NOTE | 2025-05-06 12:06 | DVHDS2 ---
Discharge Summary Date of Admission May 02, 2025 at 20:22 Date of Discharge: May 06, 2025 Admitting Diagnosis Acute abdominal pain Wounds: EGD Labs/Diagnostic Data: Laboratory Results Test 05/06/25 06:16 05/05/25 05:42 05/04/25 18:03 05/04/25 08:10 White Blood Count 2.3 10^3/uL (4.4-10.8) Red Blood Count 3.69 10^6/uL (4.0-5.20) Hemoglobin 10.7 g/dL (12.2-16.2) Hematocrit 32.0 % (36.0-46.0) Mean Corpuscular Volume 86.8 fL (80.0-100.0) Mean Corpuscular Hemoglobin 28.9 pg (28.0-32.0) Mean Corpuscular Hemoglobin Concent 33.3 g/dL (32.0-36.0) Red Cell Distribution Width 14.6 % (11.8-14.3) Platelet Count 56 10^3/uL (140-450) Mean Platelet Volume 10.5 fL (6.9-10.8) Neutrophils (%) (Auto) 60.3 % (37.0-80.0) Lymphocytes (%) (Auto) 29.1 % (10.0-50.0) Monocytes (%) (Auto) 9.6 % (0.0-12.0) Eosinophils (%) (Auto) 0.7 % (0.0-7.0) Basophils (%) (Auto) 0.3 % (0.0-2.0) Neutrophils # (Auto) 1.4 10 ^3/uL (1.6-8.6) Lymphocytes # (Auto) 0.7 10 ^3/uL (0.4-5.4) Monocytes # (Auto) 0.2 10 ^3/uL (0-1.3) Eosinophils # (Auto) 0 10 ^3/uL (0-0.8) Basophils # (Auto) 0 10 ^3/uL (0-0.2) Nucleated Red Blood Cells 0.1 % Sodium Level 142 mmol/L (136-145) Potassium Level 4.4 mmol/L (3.5-5.1) Chloride Level 109 mmol/L (98-107) Carbon Dioxide Level 23 mmol/L (20-31) Anion Gap 10 (5-15) Blood Urea Nitrogen 9 mg/dL (9-23) Creatinine 0.98 mg/dL (0.550-1.02) Glomerular Filtration Rate Calc 57 mL/min (>90) BUN/Creatinine Ratio 9.2 (10.0-20.0) Serum Glucose 108 mg/dL (74-106) Calcium Level 9.0 mg/dL (8.7-10.4) H. pylori C Urea Breath Test Negative (Negative) Urine Color Light-yellow (Yellow) Urine Clarity Clear (Clear) Urine pH 6.5 (5.0-9.0) Urine Specific [place] 1.011 (1.001-1.035) Urine Protein Negative (Negative) Urine Ketones Negative (Negative) Urine Blood Negative /uL (Negative) Urine Nitrite Negative (Negative) Urine Bilirubin Negative (Negative) Urine Urobilinogen Normal mg/dL (Negative) Urine Leukocyte Esterase 2+ /uL (Negative) Urine RBC 1 /hpf (0 - 4) Urine Microscopic WBC 27 /HPF (0-5) Urine Squamous Epithelial Cells Few /hpf (<5) Urine Bacteria None seen /hpf (None Seen) Urine Glucose Normal mg/dL (Normal) Test 05/03/25 13:15 05/03/25 06:03 05/02/25 17:52 Prothrombin Time 10.7 sec (9.3-11.8) Prothrombin Time INR 1.01 (0.9-1.15) Troponin I High Sensitivity 8 ng/L (</=34) Platelet Estimate Decreased Anisocytosis (manual) Slight Lactic Acid Level 0.9 mmol/L (0.4-2.0) Total Bilirubin 0.5 mg/dL (0.2-1.0) Aspartate Amino Transferase (AST) 15 U/L (13-40) Alanine Aminotransferase (ALT) 18 U/L (7-40) Alkaline Phosphatase 114 U/L (46-116) Total Protein 6.9 g/dL (5.7-8.2) Albumin 4.3 g/dL (3.2-4.8) Lipase 41 U/L (12-53) Other Laboratory Tests 05/06/25 06:16 05/05/25 05:42 Brief Hx & Hospital Course: 4-year-old female with a history of hypertension diabetes hypercholesterolemia depression chronic kidney disease history of gastric ulcer came in complaining of abdominal pain labs normal CT abdomen pelvis without contrast shows diverticulosis no diverticulitis treated with the pantoprazole . EGD by Dr. Chu Collado showed large postbulbar duodenal ulcer with mild gastritis and benign- appearing gastric polyps which were removed. Patient feels better and wants to go home. Pantoprazole and Carafate prescriptions transmitted to the pharmacy. Discharged home she will follow up with GI Dr. Chu Collado in two weeks for the biopsy result Consults/Reason for consult GI Dr. Chu Collado Operations or Procedures EGD Condition at Discharge: Fair Final Diagnosis/Problems List Acute Abdominal pain: All labs normal, CT abdomen pelvis without contrast shows diverticulosis, no diverticulitis: Pantoprazole, GI consult for Dr. Chu Collado Large postbulbar duodenal ulcer mild gastritis and benign-appearing gastric polyps which were removed by EGD by Dr. Chu Collado on 05-04-25 History of gastric ulcer by EGD two years ago by Dr. Pritesh Maier Diabetes Hypercholesterolemia Depression Chronic kidney disease Discharge Disposition: Home Discharge Instruct/Medications Diet: Regular Activity: Light activity Follow Up/Referral: Follow up with the primary Dr Follow up with GI Dr. Chu Collado in two weeks for the biopsy result Medications: Pantoprazole Carafate Transmitted to [facility] 39 (Time taken for discharge summary 39 minutes) Discharge Statement: "Patient was advised to return to the ER or call 911 if any headaches, dizziness, shortness of breath, chest pain, abdominal pain, bleeding, fevers, or worsening of medical condition. Patient was counseled about treatment plan, medications, possible side effects, patientverbalized understanding. All questions were answered to the best of my ability. This discharge took greater then 30 minutes in planning, reviewing documentation, counseling the patient, and discussing with other team members." ASSESSMENT ASSESSMENT Hospital Course Uneventful Assessment Acute Abdominal pain: All labs normal, CT abdomen pelvis without contrast shows diverticulosis, no diverticulitis: Pantoprazole, GI consult for Dr. Chu Collado Large postbulbar duodenal ulcer mild gastritis and benign-appearing gastric polyps which were removed by EGD by Dr. Chu Collado on 05-04-25 History of gastric ulcer by EGD two years ago by Dr. Pritesh Maier Diabetes Hypercholesterolemia Depression Chronic kidney disease Date of Service: May 06, 2025 Billing Provider: KYLE LOU MD Common Visit Codes: 67141-EAV/OBS DISCH DAY >30min KYLE LOU MD May 06, 2025 12:06
--- NOTE | 2025-05-06 15:41 | DVHPN2 ---
Progress Note - Dictate Date Seen: May 06, 2025 Medical Necessity Reason Pt with a Central, PICC or Fol: No Subjective No new complaints, patient is lying comfortably in the bed She is tolerating a full liquid diet Yesterday the patient was confused and sitting out of bed There was no nausea vomiting or GI bleeding Her H.pylori breath test is negative The patient does admit to taking some aspirin and NSAIDs vital signs Vital Sign Date Time Temp Pulse Resp B/P (MAP) Pulse Ox O2 Delivery O2 Flow Rate FiO2 05/06/25 13:00 98.4 61 16 149/70 (96) 98 98.4 05/06/25 08:00 Room Air* 0 21 Total Intake and Output 05/05/25 05/05/25 05/06/25 15:00 23:00 07:00 Intake Total 300 ml 0 ml Balance 300 ml 0 ml medications Current Medications Medications Dose Ordered Sig/Polly Route Start Time Stop Time Status Last Admin Dose Admin Atorvastatin Calcium 40 mg HS PO 05/02/25 22:00 05/05/25 21:59 40 MG Carvedilol 12.5 mg Q12HR PO 05/02/25 22:00 05/06/25 10:04 12.5 MG Patient Own Medication 12,000 units TID PO 05/02/25 22:00 Donepezil HCl 5 mg HS PO 05/02/25 22:00 05/05/25 21:59 5 MG Acetaminophen/ Hydrocodone Bitart 1 tab Q4HP PRN PO 05/02/25 21:00 05/04/25 16:09 1 TAB Ondansetron HCl 4 mg Q4HP PRN IV 05/02/25 21:00 Acetaminophen 650 mg Q6HP PRN PO 05/02/25 21:00 05/04/25 10:46 650 MG Morphine Sulfate 2 mg Q6HPRN PRN IV 05/02/25 21:00 Pantoprazole Sodium 80 mg BID@0600,1700 PO 05/04/25 17:00 05/06/25 06:28 80 MG Sucralfate 1 gm QID@0600,1130,1700,2200 PO 05/04/25 17:00 05/06/25 13:36 1 GM objective General: NAD, AAOX3 Chest: lung cifuentes clear to auscultation Heart: RRR, no murmur Abdomen: non-distended, no tenderness to palpation, +BS laboratory and microbiology Laboratory Tests 05/06/25 06:16 05/05/25 05:42 Test 05/05/25 05:42 Range/Units Serum Glucose 108 H 74-106 mg/dL Problems(with codes): (1) Duodenal ulcer (2) Anemia (3) UGI bleed Prognosis Plan Discharge planning is in progress Advance to full liquid diet and then pureed diet Protonix 40 mg p.o. twice a day Carafate 1 g p.o. twice a day It was emphasized that the patient does not take any aspirin Motrin NSAIDs She may take Tylenol for pain Outpatient follow up with me in 2-4 weeks to review results and discuss further management Dietary Evaluation Review Comments: 1) Ensure Clear 240ml TID 2) Advance diet as mediaclly feasible Expected Outcomes/Goals: To meet >75% estimated needs Fu 2-3 days Plan discussed with: Patient, Other (Nurse) GIDEON SELLERS MD May 06, 2025 15:41
[2025-05-06] MEDS: cloNIDine HCL 0.1 MG TAB PO ONE (17:21)
== END 2025-05-06 17:28 | disposition home or self-care (01) | DRG 384 ==
LOC: ER 17:05 → EDBD 17:05 → OVERFLOW 20:22 → WEST WING 23:32
PROVIDERS: ADMIT Family Medicine; ATTEND Family Medicine
PROC: 0DB68ZX Excision of Stomach, Via Natural or Artificial Opening Endoscopic, Diagnostic (ICD-10-PCS; 2025-05-04)
PROC: 0DB98ZX Excision of Duodenum, Via Natural or Artificial Opening Endoscopic, Diagnostic (ICD-10-PCS; principal; 2025-05-04 13:59)
DX: K26.9 Duodenal ulcer, unspecified as acute or chronic, without hemorrhage or perforation (principal); F03.93 Unspecified dementia, unspecified severity, with mood disturbance; D61.818 Other pancytopenia; K29.70 Gastritis, unspecified, without bleeding; K57.30 Diverticulosis of large intestine without perforation or abscess without bleeding; F32.A Depression, unspecified; N18.9 Chronic kidney disease, unspecified; E78.00 Pure hypercholesterolemia, unspecified; F41.9 Anxiety disorder, unspecified; K31.7 Polyp of stomach and duodenum; K44.9 Diaphragmatic hernia without obstruction or gangrene; K21.9 Gastro-esophageal reflux disease without esophagitis; K59.00 Constipation, unspecified; I12.9 Hypertensive chronic kidney disease with stage 1 through stage 4 chronic kidney disease, or unspecified chronic kidney disease; E11.22 Type 2 diabetes mellitus with diabetic chronic kidney disease; Z87.11 Personal history of peptic ulcer disease; Z79.2 Long term (current) use of antibiotics; Z79.899 Other long term (current) drug therapy; Z90.49 Acquired absence of other specified parts of digestive tract; Z90.710 Acquired absence of both cervix and uterus
CPT/HCPCS: 36415; 43239; 71045; 74176; 80048; 80053; 81001; 83013; 83605; 83690; 84484; 85025; 85610; 86850; 86900; 86901; 87040; 87086; 93005; 96360; G0378; J2250; J2405; J2704

== ENCOUNTER 2025-05-19 16:31 | Emergency (ER) | payer MEDICARE, MEDICAID ==
[~2025-05-19] VITALS: Ht 157.5 cm; Wt 66.0 kg
[~2025-05-19 16:31] MED LIST changes: -ATOR40TA52 PO; -CEPH500C PO; -DOCU100T15 PO; -FER325T PO; -GABA-1250 PO; -HYDR1TAB97 PO; -POTA-220 PO; -QUET50TA27 PO; -RAME8TAB26 PO; +SUCR1TAB31 PO; -TRAM50TA2 PO; -TRIA75TA11 PO
--- NOTE | 2025-05-19 16:43 | ED.PDOC ---
History of Present Illness HPI Comments This is a 84 year old female BIBA presenting to the ED with chief complaint of worried well. EMS reports that they were called due to patient arguing with her daughter not wanting to take her medication and wishing to walk outside. EMS relays that the patient is A/O x3, but is able to answer all questions ap propriately. Patient denies any and all symptoms at this time, wishing to go home. Daughter on the phone notes patient was refusing to take her medication and was being some what difficult along with having associated abdominal pain, which is the reason she called 911, worried she may have a UTI. Time Seen by MD: 16:39 Primary Care Provider: DICK Reviewed Notes: Nurses Notes, Seed Cone Picker Notes, Medications, Allergies Allergies: Coded Allergies: NO KNOWN ALLERGIES (Verified , 08/26/15) Home Meds Active Scripts Ciprofloxacin Hcl (Cipro) 500 Mg Tab, 1 TAB PO BID, #14 TAB Prov:CESILIA FLEMING MD 05/19/25 Sucralfate (CARAFATE) 1 Gm Tab, 1 GM PO QID PRN, #120 TAB Prov:KYLE LOU MD 05/06/25 Pantoprazole Sodium Sesquihydr (Pantoprazole Sodium) 40 Mg Tab, 40 MG PO BID, #60 TAB Prov:KYLE LOU MD 05/06/25 Reported Medications Donepezil Hydrochloride (DONEPEZIL HCL) 5 Mg Tab, 1 TAB PO HS for ALZHEIMER'S DISEASE for 90 Days, #90 05/03/25 Cholecalciferol (Gnp Vitamin D) 1,000 Unit Tab, 1 TAB PO DAILY for 90 Days, #90 05/03/25 Trazodone Hcl (Trazodone Hcl) 50 Mg Tab, 1 TAB PO DAILY for 30 Days, #30 05/03/25 Temazepam (Temazepam) 15 Mg Cap, 1 CAP PO QHSP for 30 Days, #30 05/03/25 Simvastatin (Simvastatin) 20 Mg Tab, 1 TAB PO DAILY for 90 Days, #90 05/03/25 Carvedilol (Carvedilol) 12.5 Mg Tab, 1 TAB PO BID for 90 Days, #180 08/24/21 Pantoprazole Sodium Sesquihydr (Pantoprazole Sodium) 40 Mg Tab, 1 TAB PO BID for 90 Days, #180 08/24/21 Pancreatic Enzymes (Creon) 12,000 Unt Cap, 1 CAP PO TID for 33 Days, #100 08/24/21 Sertraline Hcl (Zoloft) 100 Mg Tab, 1.5 TAB PO DAILY for 45 Days, #30 08/24/21 Information Source: Patient, Emergency Med Personnel Mode of Arrival: EMS Severity: None Timing: Hours Duration: Since onset Prehospital treatment: None Past Medical History PAST MEDICAL HISTORY: Anxiety, CKF, Dementia, Depression, DM, GERD, High Lipids, HTN, PUD Past Medical History (Other): Pancreatitis Surgical History: Cholecystectomy, Hysterectomy, Tonsillectomy 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 OUT 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 History: Denies all 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 Family History Family History: No family hx of HTN Family History (Other): Mother: dementia Social History Smoker: Non-Smoker Alcohol: Denies ETOH Use Drugs: Denies Drug Use Lives In: Home Constitutional: denies: chills, diaphoresis, fatigue, fever, malaise, sweats, weakness, others EENTM: denies: blurred vision, double vision, ear bleeding, ear discharge, ear drainage, ear pain, ear ringing, eye pain, eye redness, hearing loss, mouth pain, mouth swelling, nasal discharge, nose bleeding, nose congestion, nose pain, photophobia, tearing, throat pain, throat swelling, voice changes, others Respiratory: denies: cough, hemoptysis, orthopnea, SOB at rest, shortness of breath, SOB with excertion, stridor, wheezing, others Cardiovascular: denies: chest pain, dizzy spells, diaphoresis, Dyspnea on exertion, edema, irregular heart beat, left arm pain, lightheadedness, palpitations, PND, syncope, others Gastrointestinal: denies: abdomen distended, abdominal pain, blood streaked bowels, constipated, diarrhea, dysphagia, difficulty swallowing, hematemesis, melena, nausea, poor appetite, poor fluid intake, rectal bleeding, rectal pain, vomiting, others Genitourinary: denies: abnormal vagina bleeding, burning, dyspareunia, dysuria, flank pain, frequency, hematuria, incontinence, pain, , vagina discharge, urgency, others Neurological: denies: dizziness, fainting, headache, left sided numbness, left sided weakness, numbness, paresthesia, pre-existing deficit, right sided numbness, right sided weakness, seizure, speech problems, tingling, tremors, weakness, others Musculoskeletal: denies: back pain, gout, joint pain, joint swelling, muscle pain, muscle stiffness, neck pain, others Integumetry: denies: bruises, change in color, change in hair/nails, dryness, laceration, lesions, lumps, rash, wounds, others Allergic/Immunocompromised: denies: Difficulty Healing, Frequent Infections, Hives, Itching, others Hematologic/Lymphatic: denies: anemia, blood clots, easy bleeding, easy bruising, swollen glands, others Endocrine: denies: excessive hunger, excessive sweating, excessive thirst, excessive urination, flushing, intolerance to cold, intolerance to heat, unexplained weight gain, unexplained weight loss, others Psychiatric: denies: anxiety, bipolar disorder, depression, hopeless, panic disorder, schizophrenia, sleepless, suicidal, others All Other Systems: Reviewed and Negative Physical Exam General Appearance: No Apparent Distress HEENT: Normal ENT Inspection, Pharynx Normal, TMs Normal Neck: Full Range of Motion, Non-Tender, Normal, Normal Inspection Respiratory: Chest Non-Tender, Lungs Clear, No Accessory Muscle Use, No Respiratory Distress, Normal Breath Sounds Cardiovascular: No Edema, No JVD, No Murmur, No Gallop, Normal Peripheral Pulses, Regular Rate/Rhythm Breast Exam: Deferred Gastrointestinal: No Organomegaly, Non Tender, No Pulsatile Mass, Normal Bowel Sounds, Soft Genitalia: Deferred Pelvic: Deferred Rectal: Deferred Extremities: No calf tenderness, Normal capillary refill, Normal inspection, Normal range of motion, Non-tender, No pedal edema Musculoskeletal : Apperance: Normal Neurologic: Alert, nut sheller II-XII nml as Tested, No Motor Deficits, Normal Affect, Normal Mood, No Sensory Deficits Cerebellar Function: Normal Reflexes: Normal Skin: Dry, Normal Color, Warm Lymphatic: No Adenopathy Was a procedure done? Was a procedure done?: No Differential Dx Considerations may include: UTI, weakness, heat exhaustion, dementia X-Ray, Labs, Meds, VS Vital Signs Date Time Temp Pulse Resp B/P (MAP) Pulse Ox O2 Delivery O2 Flow Rate FiO2 05/19/25 16:43 98.3 71 16 148/113 (125) 98 98.3 Lab Test 05/19/25 16:46 Range/Units Urine Color Yellow Yellow Urine Clarity Clear Clear Urine pH 5.5 5.0-9.0 Urine Specific [place] 1.025 1.001-1.035 Urine Protein Negative Negative Urine Ketones Negative Negative Urine Blood Negative Negative /uL Urine Nitrite Negative Negative Urine Bilirubin Negative Negative Urine Urobilinogen Normal Negative mg/dL Urine Leukocyte Esterase 3+ Negative /uL Urine RBC 3 0 - 4 /hpf Urine Microscopic WBC 52 H 0-5 /HPF Urine Squamous Epithelial Cells Few <5 /hpf Urine Bacteria None seen None Seen /hpf Urine Mucus Few None Seen Urine Glucose Normal Normal mg/dL The urine test is positive for UTI The patient is being discharged The patient will follow up with the primary care doctor The patient will return to the emergency department's condition worsens We contacted the family and they are coming to crab picker the patient at this time Time of 1ST Reevaluation: 17:58 Reevaluation 1ST: Improved Patient Education/Counseling: Diagnosis, Treatment, Prognosis, Need For Follow Up Family Education/Counseling: Diagnosis, Treatment, Prognosis, Need For Follow Up SEPSIS Sepsis Screen Vital Signs Date Time Temp Pulse Resp B/P (MAP) Pulse Ox O2 Delivery O2 Flow Rate FiO2 05/19/25 16:43 98.3 71 16 148/113 (125) 98 98.3 Departure 1 Departure Time of Disposition: 17:58 Impression: Primary Impression: Acute UTI (urinary tract infection) Disposition: 01 HOME / SELF CARE / HOMELESS Condition: Fair e-Prescriptions Ciprofloxacin Hcl (Cipro) 500 Mg Tab 1 TAB PO BID, #14 TAB Prov: CESILIA FLEMING MD 05/19/25 Discharged With: Self Critical Care Note Critical Care Time?: No Stability Stability form required: No Heart Score Heart Score: Heart Score Response (Comments) Value History N/A 0 EKG N/A 0 Age N/A 0 Risk Factors N/A 0 Troponin N/A 0 Total 0 I personally scribed for CESILIA FLEMING MD ([email or web address]) on 05/19/25 at 16:43. Electronically submitted by Kit Dolan ([email or web address]). CESILIA FLEMING MD May 19, 2025 16:43
[2025-05-19 17:31] LABS: Urine Bacteria None Seen /hpf (None Seen)
[2025-05-19 17:56] LABS: Urine Blood Negative /uL (Negative); Urine Clarity Clear (Clear); Urine Color Yellow (Yellow); Urine Mucus FEW (None Seen); Urine Protein, UAD Negative (Negative); Urine Specific Gravity 1.025 (1.001-1.035); Urine Squamous Epithelial Cell FEW /hpf (<5); Urine Urobilinogen Normal (Negative); Urine WBC 52 /HPF (0-5); Urine pH 5.5 (5.0-9.0)
[2025-05-19] MEDS ORDERED: CIPR-173 PO (17:58)
[2025-05-19 18:25] VITALS: BP 179/53; PULSE 65; RESP 16; TEMP 98.3; O2SAT 97
== END 2025-05-19 18:36 | disposition home or self-care (01) ==
LOC: EDBD 16:31 → ER 16:42
DX: N39.0 Urinary tract infection, site not specified (principal); I12.9 Hypertensive chronic kidney disease with stage 1 through stage 4 chronic kidney disease, or unspecified chronic kidney disease; E11.22 Type 2 diabetes mellitus with diabetic chronic kidney disease; N18.9 Chronic kidney disease, unspecified; E78.5 Hyperlipidemia, unspecified; F03.90 Unspecified dementia, unspecified severity, without behavioral disturbance, psychotic disturbance, mood disturbance, and anxiety; F32.A Depression, unspecified; F41.9 Anxiety disorder, unspecified; K21.9 Gastro-esophageal reflux disease without esophagitis; Z79.899 Other long term (current) drug therapy; Z87.11 Personal history of peptic ulcer disease; Z90.49 Acquired absence of other specified parts of digestive tract; Z90.710 Acquired absence of both cervix and uterus
CPT/HCPCS: 81001